=== PATIENT | female | born 1940 | race Caucasian/White ===

== ENCOUNTER 2020-10-12 15:46 | Outpatient (CLI) | payer MEDICARE, SELFPAY ==
--- NOTE | ~2020-10-12 | MM_ITS ---
EXAMINATION: MM screening [facility] BI w polo HISTORY: Screening mammogram TECHNIQUE: Craniocaudal and mediolateral oblique 3-D tomosynthesis images were obtained and synthetic 2-D images were generated. CAD analysis was submitted and interpreted. COMPARISON: 08/05/2019 bilateral digital screening mammogram 06/28/2018 left diagnostic digital mammogram and limited left breast ultrasound 06/04/2018 bilateral digital screening mammogram 10/28/2013 bilateral digital screening mammogram BREAST PARENCHYMAL COMPOSITION: There are scattered areas of fibroglandular density. FINDINGS: Scattered bilateral benign calcifications. There is an approximately 7 mm mass in the superolateral left subareolar area approximately 2 cm deep to the nipple. Otherwise there is no evidence of suspicious mass, calcification, or architectural distortion to sugg est malignancy in either breast. There has been no other suspicious interval change. IMPRESSION: 1. 7 mm superolateral subareolar circumscribed left breast mass 2. Diagnostic left mammogram and left breast ultrasound examination are recommended. BI-RADS Category 0: Incomplete: Needs additional imaging evaluation. Reviewed, dictated and finalized at location A. DEVELOPER IMPRESSION: 1. 7 mm superolateral subareolar circumscribed left breast mass 2. Diagnostic left mammogram and left breast ultrasound examination are recomme nded. BI-RADS Category 0: Incomplete: Needs additional imaging evaluation.
== END 2020-10-12 15:47 | disposition home or self-care (01) ==
LOC: ANHIMG 15:56
PROVIDERS: Family Provider Internal Medicine; PCP Internal Medicine; Visit Provider Obstetrics & Gynecology
DX: Z12.31 Encounter for screening mammogram for malignant neoplasm of breast (principal); R92.8 Other abnormal and inconclusive findings on diagnostic imaging of breast
CPT/HCPCS: 77063; 77067

== ENCOUNTER 2021-01-11 11:36 | Outpatient (CLI) | payer MEDICARE, SELFPAY ==
--- NOTE | ~2021-01-11 | MM_ITS ---
EXAMINATION: MM diagnostic caesar LT w polo HISTORY: Left breast mass on screening mammogram TECHNIQUE: Additional 3-D tomosynthesis images of left were performed and synthetic 2-D images were g enerated. CAD analysis was submitted and interpreted. COMPARISON: 10/12/2020, 08/05/2019, 06/28/2018, 06/04/2018 FINDINGS: There is a 7 mm oval, circumscribed, equal density mass in the anterior/middle third of the slightly upper, slightly outer breast at the 2:00 location 3 cm from the nipple. IMPRESSION: 1. Left breast mass. 2. Targeted left breast ultrasound is recommended. BI-RADS Category 0: Incomplete: Needs additional imaging evaluation. Reviewed, dictated and finalized at location A.
== END 2021-01-11 11:37 | disposition home or self-care (01) ==
LOC: ANHIMG 11:41
PROVIDERS: PCP Internal Medicine; Visit Provider Obstetrics & Gynecology
DX: R92.8 Other abnormal and inconclusive findings on diagnostic imaging of breast (principal)
CPT/HCPCS: 77061; 77065; G0279

== ENCOUNTER 2021-01-21 12:57 | Outpatient (CLI) | payer MEDICARE, SELFPAY ==
--- NOTE | ~2021-01-21 | US_ITS ---
US breast LT limited 01/21/2021 13:22 Indication: Follow-up left breast mass Procedure: High-resolution Limited ultrasound of the left breast Comparison: Mammogram dated 01/11/2021 and ultrasound dated 06/28/2018 Findings: At 2:00, 3 cm from the nipple, there is a 7 mm cyst corresponding to the mass identified on mammography. No suspicious masses to suggest malignancy. Impression: 1: Benign 7 mm left breast cysts at 3:00, 2 cm from the nipple which corresponds to the mammographic finding. No sonographic evidence for malignancy. Routine yearly screening mammogram and regular clinical breast examination are recommended. BI-RADS CATEGORY 2 - BENIGN FINDINGS Reviewed, dictated and finalized at location A. Impression: 1: Benign 7 mm left breast cysts at 3:00, 2 cm from the nipple which correspond s to the mammographic finding. No sonographic evidence for malignancy. Routine yearly screening mammogram and regular clinical breast examination are recommended. BI-RADS CATEGORY 2 - BENIGN FINDINGS
== END 2021-01-21 12:58 | disposition home or self-care (01) ==
PROVIDERS: PCP Internal Medicine; Visit Provider Obstetrics & Gynecology
DX: R92.8 Other abnormal and inconclusive findings on diagnostic imaging of breast (principal)
CPT/HCPCS: 76642

== ENCOUNTER → 2021-01-25 10:37 | Outpatient (REF) | payer MEDICARE, SELFPAY | LOC: ANHLAB 10:37 | PROVIDERS: PCP Internal Medicine; Visit Provider Nurse Practitioner | DX: C44.722 Squamous cell carcinoma of skin of right lower limb, including hip (principal) | CPT/HCPCS: 88305; 88331 ==

== ENCOUNTER → 2021-03-29 14:53 | Outpatient (REF) | payer MEDICARE, SELFPAY | LOC: ANHLAB 14:53 | PROVIDERS: PCP Internal Medicine; Visit Provider Nurse Practitioner | DX: D49.2 Neoplasm of unspecified behavior of bone, soft tissue, and skin (principal) | CPT/HCPCS: 88305 ==

== ENCOUNTER 2022-10-24 07:24 | Outpatient (RCR) | payer MEDICARE, SELFPAY ==
[2022-09-29 12:35] VITALS: BMI 30.2
== END 2022-12-19 13:52 | disposition home or self-care (01) ==
LOC: ANHWOC 07:24
PROVIDERS: PCP Family Medicine; Visit Provider Family Medicine
DX: L97.929 Non-pressure chronic ulcer of unspecified part of left lower leg with unspecified severity (principal)
CPT/HCPCS: 99213; A9270; G0463

== ENCOUNTER → 2022-11-08 11:56 | Outpatient (CLI) | payer MEDICARE, SELFPAY ==
--- NOTE | ~2022-11-08 | XR_ITS ---
XR chest 2V DATE: 11/08/2022 12:18 INDICATION: Cutaneous blastomycosis TECHNIQUE: PA and lateral views COMPARISON: None FINDINGS: Normal heart size. Aortic arch calcification and mild aortic tortuosity. No hilar or medias tinal enlargement. Mild elevation of right leaf of diaphragm. Mild discoid atelectasis or scarring at the lung bases. No pulmonary infiltrate or consolidation. No pleural effusion or pulmonary vascular congestion or pneum othorax. Prominent levoscoliosis and degenerative change of the lumbar spine. Osteopenia. IMPRESSION: Mild elevation of right diaphragm Mild discoid atelectasis or scarring at the lung bases Aortic atherosclerosis Osteopenia Reviewed, dictated and finalized at location L. AR STAY FUSER TENDER
== END ==
PROVIDERS: PCP Family Medicine
DX: B40.3 Cutaneous blastomycosis (principal); M85.88 Other specified disorders of bone density and structure, other site; I25.10 Atherosclerotic heart disease of native coronary artery without angina pectoris; R91.8 Other nonspecific abnormal finding of lung field
CPT/HCPCS: 71046

== ENCOUNTER 2023-07-04 15:21 | Outpatient (CLI) | payer MEDICARE, SELFPAY ==
--- NOTE | ~2023-07-04 | MM_ITS ---
EXAMINATION: MM screening [facility] BI w polo HISTORY: Screening mammogram TECHNIQUE: Craniocaudal and mediolateral oblique 3-D tomosynthesis images were obtained and synthetic 2-D images were generated. CAD analysis was submitted and interpreted. COMPARISON: 01/11/2021, 10/12/2020, 08/05/2019 BREAST PARENCHYMAL COMPOSITION: There are scattered areas of fibroglandular density. FINDINGS: A cyst is again noted in the subareolar aspect of the slightly outer left breast. No suspic ious mass, calcification, or architectural distortion are identified in either breast to suggest rosemarie gnancy. There has been no suspicious interval change. IMPRESSION: 1. No mammographic evidence of malignancy. 2. Recommend routine screening mammography while the patient remains in good health. BI-RADS Category 2: Benign finding(s). Reviewed, dictated and finalized at location A. IMPRESSION: 1. No mammographic evidence of malignancy. 2. Recommend routine screening mammography while the patient remains in good he alth. BI-RADS Category 2: Benign finding(s).
== END 2023-07-04 15:22 | disposition home or self-care (01) ==
LOC: ANHIMG 15:24
PROVIDERS: PCP Family Medicine; Visit Provider Obstetrics & Gynecology
DX: Z12.31 Encounter for screening mammogram for malignant neoplasm of breast (principal)
CPT/HCPCS: 77063; 77067

== ENCOUNTER 2024-07-19 14:19 | Outpatient (CLI) | payer MEDICARE, SELFPAY ==
[2024-07-19 18:05] LABS: Add Urine Microscopic? NO; Appearance Urine Clear (Clear); Bilirubin Urine Negative (Negative); Blood Urine Negative (Negative); Color Urine Yellow (Yellow); Glucose Urine UA Negative (Negative); Ketones Urine Negative (Negative); Leukocyte Esterase Ur Negative LEU/UL (Negative); Nitrate Urine Negative (Negative); Protein Urine Negative (Negative); Urobilinogen Urine 0.2 mg/dL (<2.0); pH Urine 5.5 (5.0-9.0)
== END 2024-07-19 14:20 | disposition home or self-care (01) ==
PROVIDERS: PCP Family Medicine; Visit Provider Family Medicine
DX: R39.9 Unspecified symptoms and signs involving the genitourinary system (principal); Z13.228 Encounter for screening for other metabolic disorders; Z13.220 Encounter for screening for lipoid disorders
CPT/HCPCS: 81003

== ENCOUNTER 2024-11-15 15:00 | Outpatient (CLI) | payer MEDICARE, SELFPAY ==
--- NOTE | ~2024-11-15 | MM_ITS ---
EXAMINATION: MM screening caesar BI w polo HISTORY: Screening TECHNIQUE: Craniocaudal and mediolateral oblique 3-D tomosynthesis images were obtained and synthetic 2-D images were generated. CAD analysis was submitted and interpreted. COMPARISON: Comparison to multiple prior studies sequentially, with oldest reviewed study dated 10/2018. BREAST PARENCHYMAL COMPOSITION: Not dense: There are scattered areas of fibroglandular density. FINDINGS: There is no evidence of suspicious mass, calcification, or architectural distortion to sugg est malignancy in either breast. There has been no suspicious interval change. IMPRESSION: 1. No mammographic evidence of malignancy. 2. Recommend routine screening mammography in one year. BI-RADS Category 1: Negative Reviewed, dictated and finalized at location []
--- OUTSIDE RECORDS SUMMARY | 2024-11-15 15:05 | XMS_ITS | Continuity of Care Document ---
Author Name Auto Generated, Auto Generated Organization [employer] Support Name Relationship Address Phone Arnaldo Arauz Emergency Contact [address] [place] [address] Melissa Arauz Emergency Contact [address] [place] [address] Melissa Arauz Financial Responsible Democrat [address] [place] [address] Melissa Arauz Self [address] [place] [address] Summary Purpose Consult/Referral Allergies, Adverse Reactions, Alerts No Known Allergies Medications No Known Medications Conditions/Problems No Known Problems Procedures No Known Procedures
--- OUTSIDE RECORDS SUMMARY | 2024-11-15 15:06 | XMS_ITS | Clinical Summary ---
Author Organization [facility] Address [address] [place] [address] Care Team Providers Care Typing Section Chief Name Role Phone Gokul Albarran MD Primary Care Provider Source Comments [facility],non-university hospital Affiliates and Associated Physician Practices is amultiple site organization consisting of ambulatory clinics and hospital sitesin [place], [place], [place] and [place]. This disclosure is being madepursuant to the Care Everywhere program and may not contain all information available regarding this patient. Last updated 18.[facility] Allergies Active Allergy Reactions Criticality Noted Date Comments Codeine Dizziness 05/07/2021 Reaction: Dizziness, Medications * Be aware that medications may not be up to date on this document. Alwaysverify current medications with the patient. Medication Sig Dispensed Refills Start Date End Date Status amLODIPine (NORVASC) 5 MG tablet 05/03/2021 Active atorvastatin (LIPITOR) 20 MG tablet 02/10/2021 Active celecoxib (CELEBREX) 100 MG capsule 02/10/2021 Active clonazePAM (KLONOPIN) 0.5 MG tablet 11/15/2020 Active fluticasone propionate (FLONASE) 50 MCG/ACT nasal spray 05/03/2021 Active hydroCHLOROthiazide (HYDRODIURIL) 25 MG tablet 05/03/2021 Active levothyroxine (SYNTHROID) 100 MCG tablet 05/03/2021 Active montelukast (SINGULAIR) 10 MG tablet 05/03/2021 Active nitrofurantoin monohyd macro crystals (MACROBID) 100 MG capsule 03/04/2021 Active olopatadine (PATADAY) 0.2 % ophthalmic solution 06/09/2020 Active predniSONE (DELTASONE) 20 MG tablet 04/22/2021 Active triamcinolone acetonide (KENALOG) 0.1 % cream 04/26/2021 Act boogie vitamin D3 (D--NI) 10 MCG (400 UNITS)/ML solution Take 1,000 Units by mouth Active Active Problems No known active problems Social History Tobacco Use Types Packs/Day Years Used Date Smoking Tobacco: Never Smokeless Tobacco: Never Sex and Gender Information Value Date Recorded Sex Assigned at Female 05/28/2021 5:56 PM CDT Gender Identity Female 05/28/2021 5:56 PM CDT Sexual Orientation Straight 05/28/2021 5: 56 PM CDT Plan of Treatment Health Maintenance Due Date Last Done Comments BONE DENSITY TESTING 1940 DTAP/TDAP/TD VACCINES (1 - Tdap) 1959 PNEUMOCOCCAL VACCINE 50+ (1 of 1 - PCV) 1990 ZOSTER VACCINE (1 of 2) 1990 Respiratory Syncytial Virus (RSV) Vaccine Pt: or over 60 yrs (1 - 1-dose 75+ series) 2015 COVID-19 VACCINE (2023-2 5 season) 2024 INFLUENZA VACCINE (#1) 2024 DEPRESSION SCREENING 09/04/2024 MEDICARE AWV CALENDAR YEAR 2024 HEPATITIS B VACCINE Aged Out No longe r eligible based on patient's age to complete this topic HIB VACCINE Aged Out No longer eligi ble based on patient's age to complete this topic HPV VACCINE Aged Out No longer eligi ble based on patient's age to complete this topic MENINGOCOCCAL (Group B) VACC INE SHARED DECISION-MAKING Aged Out No longer eligibl e based on patient's age to complete this topic MENINGOCOCCAL GROUPS A/C/Y/W VACCINE Aged Out No longer eligible b ased on patient's age to complete this topic Care Teams Typing Section Chief Relationship Specialty Start Date End Date Gokul Albarran MD [address] [place] [address] PCP - General 12/15/20
--- OUTSIDE RECORDS SUMMARY | 2024-11-15 15:06 | XMS_ITS | Encounter Summary ---
Author Organization [facility] Address [facility] [place] [address] Care Team Providers Care Supply Cataloguer Name Role Phone Gokul Albarran MD Primary Care Provider [phone] Encounter Details Date Type Department Care Team (Late st Contact Info) Description 03/21/2024 Lab Requisition [facility] - DermPath Lab [address] [place] [id number] Landy Najera DO [address] [facility] [facility] [place] [address] Social History Tobacco Use Types Packs/Day Years Used Date Smoking Tobacco: Never Smokeless Tobacco: Never Sex and Gender Information Value Date Recorded Sex Assigned at Female 05/28/2021 5:56 PM CDT Gender Identity Female 05/28/2021 5:56 PM CDT Sexual Orientation Straight 05/28/2021 5: 56 PM CDT documented as of this encounter Plan of Treatment Not on file documented as of this encounter Procedures Procedure Name Priority Date/Time Associated Diagnosis Comments DERMATOPATHOLOGY Routine 03/21/2024 2:52 PM CDT documented in this encounter Results * DERMATOPATHOLOGY (03/21/2024 2:52 PM CDT) Case Report Dermatopathology Report Case: [id number] Authorizing Provider: Landy Najera DO Collected: 03/21/2024 02:52 PM Ordering Location: [facility] - Received: 03/25/2024 07:38 AM DermPath Lab Pathologist: Hawa Ayala MD Specimens: A) - Skin, left helix B) - Skin, right elbow 3:12 PM T DERMATOPATHOLOGY LABORATORY Final Diagnosis Specimen A. SKIN, left helix: BASAL CELL CARCINOMA, NODULAR TYPE (C44.219) Specimen B. 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 The specimen consists of a shave biopsy measuring 6x4x1 mm. Jar 0. Specimen B: Received is one formalin filled container labeled with the patient's name and designated right elbow. The specimen consists of a shave biopsy measuring 9x8x2 mm. Jar 0. 3:12 PM T DERMATOPATHOLOGY LABORATORY Microscopic Description Specimen A. SKIN, left helix: Within the dermis there are aggregates of basaloid cells with a high nuclear to cytoplasmic ratio and peripheral palisading. Specimen B. SKIN, right elbow: There is psoriasiform hyperplasia of the epidermis with focal parakeratosis and spongiosis. There are also scattered dyskeratotic keratinocytes and vacuolar alteration along the basal cell layer. In addition, an underlying band-like infiltrate composed mostly of lymphocytes focally obscures the dermal-epidermal junction. Scattered eosinophils are seen in the dermis as well as within the epidermis. Intraepidermal Langerhans cell microabscesses are noted. The epidermis is focally necrotic and covered with a scale-crust. There is fibrin at the base. Grocott's methenamine silver (GMS) stain is negative for fungal elements in the sections examined. Additional deeper sections were obtained and reviewed. COMMENT: If these histologic features represent a more localized process, the findings are consistent with an inflamed benign verrucous keratosis. If these histologic features represent a more diffuse process, the histologic differential diagnosis includes hypertrophic lichen planus, a lichenoid hypersensitivity reaction, such as to contact or drug, or an immunobullous disease, such as bullous pemphigoid. If there is clinical concern for a diagnosis of an immunobullous disease, consideration should be given to submitting tissue for direct immunofluorescence. 4 3:12 PM CDT DERMATOPATHOLOGY LABORATORY Disclaimer An external and internal positive and negative controls are appropriate for the histochemical, immunohistochemical and immunofluorescence stain(s) in this case (if any), except where stated explicitly. The performance characteristics of the stain(s) cited in this report were developed and its performance characteristic determined by the Dermatopathology Laboratory at [facility], directed by Dr. Dylan Castle. These tests need not be, and therefore are not, approved by the [place] Food and Drug Administration. The tests are used for clinical purposes. Billing Codes Specimen Charges Stain Charges 09151 85196 1 1 41622 1 4 3:12 PM CDT DERMATOPATHOLOGY LABORATORY Embedded Images 4 3:12 PM CDT DERMATOPATHOLOGY LABORATORY Pathology/Cytology TISSUE SPECIMEN FROM SKIN / Unknown 03/21/2024 2:52 PM CDT 03/25/2024 7:38 AM CDT Miscellaneous samples (specimen) TISSUE SPECIMEN FROM SKIN / Unknown 03/21/2024 2:52 PM CDT 03/25/2024 7:38 AM CDT Landy Najera DO LAB - PATHOLOGY/C YTOLOGY ORDERABLES DERMATOPATHOLOGY LABORATORY [facility] - Department of Dermatology [facility] [address] [place] [address], [address] [phone] documented in this encounter Visit Diagnoses Not on filedocumented in this encounter Care Teams Supply Cataloguer Relationship Specialty Start Date End Date Gokul Albarran MD [address] [place] [address] PCP - General 12/15/20 documented as of this encounter
--- OUTSIDE RECORDS SUMMARY | 2024-11-15 15:06 | XMS_ITS | Referral Summary ---
Author Organization [facility] Address [address] [place] [address] Care Team Providers Care Cupola Melter Name Role Phone Gokul Albarran MD Primary Care Provider Source Comments [facility],non-[facility] Affiliates and Associated Physician Practices is amultiple site organization consisting of ambulatory clinics and hospital sitesin [place], [place], [place] and [place]. This disclosure is being madepursuant to the [...] 5: 56 PM CDT Plan of Treatment Not on file Care Teams Cupola Melter Relationship Specialty Start Date End Date Gokul Albarran MD [address] [place] [address] PCP - General 12/15/20
--- OUTSIDE RECORDS SUMMARY | 2024-11-15 15:07 | XMS_ITS | Encounter Summary ---
Author Organization [facility] Address [address] [place] [address] Care Team Providers Care Vamp Stitcher Name Role Phone Gokul Albarran MD Primary Care Provider [phone] Encounter Details Date Type Department Care Team (Late st Contact Info) Description 12/16/2020 Lab Requisition [facility] [address] [place] [address] Jose William MD [address] [address] Social History Tobacco Use Types Packs/Day Years Used Date Smoking Tobacco: Never Assessed Sex and Gender Information Value Date Recorded Sex Assigned at Female 05/28/2021 5:56 PM CDT Gender Identity Female 05/28/2021 5:56 PM CDT Sexual Orientation Straight 05/28/2021 5: 56 PM CDT documented as of this encounter Plan of Treatment Not on file documented as of this encounter Procedures Procedure Name Priority Date/Time Associated Diagnosis Comments DERMATOPATHOLOGY Routine 12/14/2020 3:33 AM CDT documented in this encounter Results * DERMATOPATHOLOGY (12/14/2020 3:33 AM CDT) Case Report Dermatopathology Report Case: [id number] Authorizing Provider: Jose William MD Collected: 12/14/2020 03:33 AM Ordering Location: [facility] Received: 12/16/2020 06:43 AM Pathologist: Koby Castle MD Specimen: Skin, right lower leg 2:17 PM CDT DERMATOPATHOLOGY LABORATORY Final Diagnosis Specimen A. 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 Path # [id number]. 2:17 PM CDT DERMATOPATHOLOGY LABORATORY Gross Description Specimen A: Received is one formalin filled container labeled with the patient's name and designated right lower leg. The specimen consists of a shave biopsy measuring [id number]. Jar 0. 2:17 PM CDT DERMATOPATHOLOGY LABORATORY Microscopic Description Specimen A. SKIN, right lower leg: Arising in the epidermis and extending into the dermis there are irregularly shaped aggregates of keratinocytes showing evidence of premature cornification. 2:17 PM CDT DERMATOPATHOLOGY LABORATORY Disclaimer An external and internal positive and negative controls are appropriate for the histochemical, immunohistochemical and immunofluorescence stain(s) in this case (if any), except where stated explicitly. The performance characteristics of the stain(s) cited in this report were developed and its performance characteristic determined by the Dermatopathology Laboratory at [facility], directed by Dr. Dylan Castle. These tests need not be, and therefore are not, approved by the [place] Food and Drug Administration. The tests are used for clinical purposes. Billing Codes Specimen Charges Stain Charges 66899 1 1 2:17 PM CDT DERMATOPATHOLOGY LABORATORY Embedded Images 2:17 PM CDT DERMATOPATHOLOGY LABORATORY Pathology/Cytolo gy TISSUE SPECIMEN FROM SKIN / Unknown 12/14/2020 3:33 AM CDT 12/16/2020 6:43 AM CDT Jose William MD LAB - PATHOLOGY/CYTO LOGY ORDERABLES DERMATOPATHOLOGY LABORATORY [facility] - Department of Dermatology [address], [address] [phone] documented in this encounter Visit Diagnoses Not on filedocumented in this encounter Care Teams Vamp Stitcher Relationship Specialty Start Date End Date Gokul Albarran MD [address] [place] [address] PCP - General 12/15/20 documented as of this encounter
--- OUTSIDE RECORDS SUMMARY | 2024-11-15 15:07 | XMS_ITS | Encounter Summary ---
Author Organization [facility] Address [address] [place] [address] Care Team Providers Care Color Developer Name Role Phone Gokul Albarran MD Primary Care Provider [phone] Encounter Details Date Type Department Care Team (Late st Contact Info) Description 03/19/2021 Lab Requisition [facility] DermPath Lab [address] [place] [address] Jose William MD [address] [place] [address] Social History Tobacco Use Types Packs/Day [...] Priority Date/Time Associated Diagnosis Comments DERMATOPATHOLOGY Routine 03/17/2021 3:33 AM CDT documented in this encounter Results * DERMATOPATHOLOGY (03/17/2021 3:33 AM CDT) Case Report Dermatopathology Report Case: [id number] Authorizing Provider: Jose William MD Collected: 03/17/2021 03:33 AM Ordering Location: [facility] DermPath Lab Received: 03/19/2021 05:39 AM Pathologist: Stacey Padilla MD Specimens: A) - Skin, right ant lower leg B) - Skin, left post lower leg 4:32 PM [facility] DERMATOPATHOLOGY LABORATORY Final Diagnosis Specimen A. SKIN, right ant lower leg: SQUAMOUS CELL CARCINOMA, WELL DIFFERENTIATED (C44.722) Specimen B. SKIN, left post lower leg: SQUAMOUS CELL CARCINOMA, WELL DIFFERENTIATED (C44.729) 4:32 PM [facility] DERMATOPATHOLOGY LABORATORY Clinical History A: SCCA vs other. Path # [id number]. B: SCCA vs other. Path # [id number]. 4:32 PM [facility] DERMATOPATHOLOGY LABORATORY Gross Description Specimen A: Received is one formalin filled container labeled with the patient's name and designated right ant lower leg. The specimen consists of a shave biopsy measuring 6t1x2zm. Jar 0. Specimen B: Received is one formalin filled container labeled with the patient's name and designated left post lower leg. The specimen consists of a shave biopsy measuring [id number]. Jar 0. 4:32 PM [facility] DERMATOPATHOLOGY LABORATORY Microscopic Description Specimen A. SKIN, right ant lower leg: Arising in the epidermis and extending into the dermis there are irregularly shaped aggregates of keratinocytes showing evidence of premature cornification. Specimen B. SKIN, left post lower leg: Arising in the epidermis and extending into the dermis there are irregularly shaped aggregates of keratinocytes showing evidence of premature cornification. 4:32 PM T DERMATOPATHOLOGY LABORATORY Disclaimer An external and internal positive and negative controls are appropriate for the histochemical, immunohistochemical and immunofluorescence stain(s) in this case (if any), except where stated explicitly. The performance characteristics of the stain(s) cited in this report were developed and its performance characteristic determined by the Dermatopathology Laboratory at [facility], directed by Dr. Dylan Castle. These tests need not be, and therefore are not, approved by the [place] Food and Drug Administration. The tests are used for clinical purposes. Billing Codes Specimen Charges Stain Charges 37582 02181 1 1 1 4:32 PM T DERMATOPATHOLOGY LABORATORY Embedded Images 4:32 PM CDT DERMATOPATHOLOGY LABORATORY Pathology/Cytology TISSUE SPECIMEN FROM SKIN / Unknown 03/17/2021 3:33 AM CDT 03/19/2021 5:39 AM CDT Miscellaneous samples (specimen) TISSUE SPECIMEN FROM SKIN / Unknown 03/17/2021 3:33 AM CDT 03/19/2021 5:39 AM CDT Jose William MD LAB - PATHOLOGY/CYTO LOGY ORDERABLES DERMATOPATHOLOGY LABORATORY [facility] - Department of Dermatology [facility] Medicine [address] [place] [address], [address] [phone] documented in this encounter Visit Diagnoses Not on filedocumented in this encounter Care Teams Color Developer Relationship Specialty Start Date End Date Gokul Albarran MD [address] [place] [address] PCP - General 12/15/20 documented as of this encounter
--- OUTSIDE RECORDS SUMMARY | 2024-11-15 15:07 | XMS_ITS | Patient Health Summary ---
Author Organization [facility] Address [address] [place] [address] Care Team Providers Care Feed Crusher Name Role Phone Gokul Albarran MD Primary Care Provider [phone] Note from [facility],non-owned Affiliates and Associated Physician Practices is amultiple site organization consisting of ambulatory clinics and hospital sitesin [place], [place], [place] and [place]. This disclosure is being madepursuant to the Care Everywhere program and may not contain all information available regarding this patient. Last updated 18.[facility] Allergies * Codeine(Dizziness) Medications * Be aware that medications may not be up to date on this document. Alwaysverify current medications with the patient. * amLODIPine (NORVASC) 5 MG tablet(Started 05/03/2021) * atorvastatin (LIPITOR) 20 MG tablet(Started 02/10/2021) * celecoxib (CELEBREX) 100 MG capsule(Started 02/10/2021) * clonazePAM (KLONOPIN) 0.5 MG tablet(Started 11/15/2020) * fluticasone propionate (FLONASE) 50 MCG/ACT nasal spray(Started 05/03/2021) * hydroCHLOROthiazide (HYDRODIURIL) 25 MG tablet(Started 05/03/2021) * levothyroxine (SYNTHROID) 100 MCG tablet(Started 05/03/2021) * montelukast (SINGULAIR) 10 MG tablet(Started 05/03/2021) * nitrofurantoin monohyd macro crystals (MACROBID) 100 MG capsule(Started 03/04/2021) * olopatadine (PATADAY) 0.2 % ophthalmic solution(Started 06/09/2020) * predniSONE (DELTASONE) 20 MG tablet(Started 04/22/2021) * triamcinolone acetonide (KENALOG) 0.1 % cream(Started 04/26/2021) * vitamin D3 (D--NI) 10 MCG (400 UNITS)/ML solution Take 1,000 Units by mouth Active Problems No known active problems Social History Tobacco Use Types Packs/Day Years Used Date Smoking Tobacco: Never Smokeless Tobacco: Never Sex and Gender Information Value Date Recorded Sex Assigned at Female 05/28/2021 5:56 PM CDT Gender Identity Female 05/28/2021 5:56 PM CDT Sexual Orientation Straight 05/28/2021 5: 56 PM CDT Procedures * DERMATOPATHOLOGY(Performed 03/21/2024) * DERMATOPATHOLOGY(Performed 04/22/2021) * DERMATOPATHOLOGY(Performed 03/17/2021) * DERMATOPATHOLOGY(Performed 12/14/2020) * CYTOLOGY SMEAR PAP THIN PREP(Performed 01/18/1999) * CYTOLOGY SMEAR PAP THIN PREP(Performed 10/03/1997) Results * DERMATOPATHOLOGY (03/21/2024 2:52 PM CDT) Only the most recent of4 resultswithin the time period is included. Case Report Dermatopathology Report Case: [id number] Authorizing Provider: Landy Najera DO Collected: 03/21/2024 02:52 PM Ordering Location: [facility] - Received: 03/25/2024 07:38 AM DermPath Lab Pathologist: Hawa Ayala MD Specimens: A) - Skin, left helix B) - Skin, right elbow 4 3:12 PM CDT DERMATOPATHOLOGY LABORATORY Final Diagnosis Specimen A. SKIN, left helix: BASAL CELL CARCINOMA, NODULAR TYPE (C44.219) Specimen B. 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 Jar 0. 3:12 PM [facility] DERMATOPATHOLOGY LABORATORY Microscopic Description Specimen A. SKIN, [...] given to submitting tissue for direct immunofluorescence. 3:12 PM [facility] DERMATOPATHOLOGY LABORATORY Disclaimer An external and internal positive and negative controls are appropriate for the histochemical, immunohistochemical and immunofluorescence stain(s) in this case (if any), except where stated explicitly. The performance characteristics of the stain(s) cited in this report were developed and its performance characteristic determined by the Dermatopathology Laboratory at [facility], directed by Dr. Dylan Castle. These tests need not be, and therefore are not, approved by the [place] Food and Drug Administration. The tests are used for clinical purposes. Billing Codes Specimen Charges Stain Charges 80876 61137 1 1 48402 1 4 3:12 PM CDT DERMATOPATHOLOGY LABORATORY Embedded Images 4 3:12 PM CDT DERMATOPATHOLOGY LABORATORY Pathology/Cytology TISSUE SPECIMEN FROM SKIN / Unknown 03/21/2024 2:52 PM CDT 03/25/2024 7:38 AM CDT Miscellaneous samples (specimen) TISSUE SPECIMEN FROM SKIN / Unknown 03/21/2024 2:52 PM CDT 03/25/2024 7:38 AM CDT Landy Najera DO LAB - PATHOLOGY/C YTOLOGY ORDERABLES DERMATOPATHOLOGY LABORATORY [facility] - Department of Dermatology [address], [address] [phone] * CYTOLOGY SMEAR PAP THIN PREP (01/18/1999 11:15 AM CDT) Only the most recent of2 resultswithin the time period is included. Result CASE NUMBER [id number] Comment: ORDERING PHYSICIAN FRANCINE NAVA SPECIMEN TYPE PAP Smear Date 01/18/1999 Procedure Vaginal, 1 Vial for Thin Prep Received Specimen Adequacy Satisfactory for Evaluation Categorization Epithelial Cell Abnormality Atypical sq. cells of undetermined significance (ASCUS) Snomed. 02/02/1999 1538 <1> Knockout Machine Operator Alice Alejo (ASCP) Pathologist. Eleazar Pretty M.D. PAP Footnote The PAP smear is only a screening procedure to aid in the detection of cervical cancer and its precursors. It is not a diagnostic procedure and should not be used as the sole means to detect cervical cancer. Both false negative and false positive results have been experienced. MISCELLANEOUS SAMPLES / Unknown 01/18/1999 11:15 AM CDT 01/20/1999 11:15 AM CDT Historical Provider LAB - PATHOLOGY/C YTOLOGY ORDERABLES Care Teams Feed Crusher Relationship Specialty Start Date End Date Gokul Albarran MD [address] [place] [address] PCP - General 12/15/20
--- OUTSIDE RECORDS SUMMARY | 2024-11-15 15:07 | XMS_ITS | Encounter Summary ---
Author Organization [facility] Address [address] [place] [address] Care Team Providers Care Floor Renovator Name Role Phone Gokul Albarran MD Primary Care Provider Encounter Details Date Type Department Care Team (Late st Contact Info) Description 04/24/2021 Lab Requisition [facility] DermPath Lab [address] [place] [address] Jose William MD [address] [place] [address] Social History Tobacco Use Types Packs/Day [...] Priority Date/Time Associated Diagnosis Comments DERMATOPATHOLOGY Routine 04/22/2021 3:33 AM CDT documented in this encounter Results * DERMATOPATHOLOGY (04/22/2021 3:33 AM CDT) Case Report Dermatopathology Report Case: [id number] Authorizing Provider: Jose William MD Collected: 04/22/2021 03:33 AM Ordering Location: [facility] DermPath Lab Received: 04/24/2021 02:45 PM Pathologist: Hawa Ayala MD Specimen: Skin, right back 2:46 PM T DERMATOPATHOLOGY LABORATORY Final Diagnosis Specimen A. SKIN, right back: SPONGIOTIC DERMATITIS WITH EOSINOPHILS (L30.8) (see microscopic description and comment) 2:46 PM T DERMATOPATHOLOGY LABORATORY Clinical History ACD vs drug eruption vs BP. Path # [id number]. 2:46 PM CDT DERMATOPATHOLOGY LABORATORY Gross Description Specimen A: Received is one formalin filled container labeled with the patient's name and designated right back. The specimen consists of a shave biopsy measuring [id number]. Jar 0. 2:46 PM T DERMATOPATHOLOGY LABORATORY Microscopic Description Specimen A. SKIN, right back: There is focal parakeratosis and spongiosis. Intraepidermal spongiotic microvesicles are present. In the dermis there is a mainly superficial perivascular lymphohistiocytic inflammatory infiltrate with eosinophils. Grocott's methenamine silver (GMS) stain fails to highlight fungal elements in the available sections. COMMENT: The histological differential diagnosis includes a contact dermatitis, an eczematous drug eruption, and less likely the urticarial phase of bullous pemphigoid. 2:46 PM CDT DERMATOPATHOLOGY LABORATORY Disclaimer An external and internal positive and negative controls are appropriate for the histochemical, immunohistochemical and immunofluorescence stain(s) in this case (if any), except where stated explicitly. The performance characteristics of the stain(s) cited in this report were developed and its performance characteristic determined by the Dermatopathology Laboratory at [facility], directed by Dr. Dylan Castle. These tests need not be, and therefore are not, approved by the [place] Food and Drug Administration. The tests are used for clinical purposes. Billing Codes Specimen Charges Stain Charges 63146 1 91779 1 1 2:46 PM CDT DERMATOPATHOLOGY LABORATORY Embedded Images 2:46 PM CDT DERMATOPATHOLOGY LABORATORY Pathology/Cytolo gy TISSUE SPECIMEN FROM SKIN / Unknown 04/22/2021 3:33 AM CDT 04/24/2021 2:45 PM CDT Jose William MD LAB - PATHOLOGY/CYTO LOGY ORDERABLES DERMATOPATHOLOGY LABORATORY [facility] - Department of Dermatology [facility] Medicine [address] [place] [address], [address] [phone] documented in this encounter Visit Diagnoses Not on filedocumented in this encounter Care Teams Floor Renovator Relationship Specialty Start Date End Date Gokul Albarran MD [address] [place] [address] PCP - General 12/15/20 documented as of this encounter
--- OUTSIDE RECORDS SUMMARY | 2024-11-15 15:07 | XMS_ITS | Clinical Summary ---
Author Organization [facility] Address [address] Attn: Epic Prelude ADT [place] [address] Care Team Providers Care Design Consultant Name Role Phone Unavailable Primary Care Provider Unavailabl e Allergies Active Allergy Reactions Criticality Noted Date Comments Codeine Unknown 04/12/2023 Nitrofurantoin Monohyd/M-Cryst Unknown 04/12 Medications levothyroxine 100 mcg tablet Take 1 tablet by mouth daily. 90 Tablet 4 2 2:14 PM CDT 022 Active mupirocin (BACTROBAN) 2 % Ointment Apply topically 2-3 times a day until symptoms resolved as directed 22 Gram 2 5:31 PM CDT 022 Active amoxicillin (AMOXIL) 500 mg capsule Take 4 (four) capsules by mouth 1 (one) hour prior to each dental appointment. 12 Capsule 2 6:43 PM CDT 022 Active pravastatin (PRAVACHOL) 10 mg tablet Take 1 Tablet (10 mg) by mouth daily. 90 Tablet 4 3 5:43 PM CDT 022 Active nirmatrelvir-ri tonavir (Paxlovid, EUA,) 300(150mg x 2)-100 mg oral pack Take TWO 150 mg tablets of nirmatrelvir with ONE 100 mg tablet of ritonavir by mouth twice daily for 5 days. 30 Each 023 Active triamcinolone acetonide (KENALOG) 0.1 % Cream Apply twice daily over affected areas on the arms for no more than 3 weeks in a row. 80 Gram 3 6:35 PM SHINGLE SHEARING MACHINE OPERATOR 023 Active mupirocin (BACTROBAN) 2 % Ointment Apply 2-3 times a day until symptoms resolved 44 Gram 3 5:48 PM SHINGLE SHEARING MACHINE OPERATOR 023 Active amoxicillin (AMOXIL) 875 mg tablet Take one tablet by mouth twice daily until gone 14 Tablet 3 6:02 PM CDT 023 Active acitretin (SORIATANE) 25 mg Capsule Take 1 Capsule (25 mg) by mouth daily. 30 Capsule 3 6:40 PM CDT 023 Active clobetasoL (TEMOVATE) 0.05 % Ointment Apply to affected areas twice daily until follow up in 3 weeks 45 Gram 1 3 6:40 PM CDT 023 Active mupirocin (BACTROBAN) 2 % Ointment Apply twice daily to the affected areas on the legs until healed 22 Gram 1 3 3:56 PM SHINGLE SHEARING MACHINE OPERATOR 023 Active clobetasoL (TEMOVATE) 0.05 % Ointment Apply to affected areas twice daily until follow up in 3 weeks. 45 Gram 1 3 8:37 AM CDT 023 Active mupirocin (BACTROBAN) 2 % Ointment Apply twice daily to the affected areas on the legs until healed 22 Gram 1 4 12:03 PM SHINGLE SHEARING MACHINE OPERATOR 023 Active amoxicillin (AMOXIL) 500 mg capsule TAKE 4 CAPSULES BY MOUTH 1 HOUR PRIOR TO EACH DENTAL APPOINTMENT 12 Capsule 3 6:21 PM CDT 023 Active clonazePAM (KlonoPIN) 0.5 mg Tablet Take 1 Tablet (0.5 mg) by mouth daily. 90 Tablet 1 3 4:32 PM SHINGLE SHEARING MACHINE OPERATOR 023 Active acitretin (SORIATANE) 10 mg Capsule Take 1 Capsule (10 mg) by mouth daily. 30 Capsule 1 3 5:42 PM CDT 023 Active mupirocin (BACTROBAN) 2 % Ointment Apply to open sores on lower legs 2 times daily. 22 Gram 1 4 12:59 PM CDT 023 Active amLODIPine (NORVASC) 5 mg tablet Take 1 Tablet (5 mg) by mouth daily. 90 Tablet 1 4 6:47 PM CDT 024 Active hydroCHLOROthia zide 25 mg tablet TAKE ONE TABLET BY MOUTH ONCE DAILY 90 Tablet 1 4 6:47 PM CDT 024 Active levothyroxine 112 mcg tablet Take 1 Tablet (112 mcg) by mouth daily. 90 Tablet 1 4 6:47 PM CDT 024 Active montelukast (SINGULAIR) 10 mg tablet Take 1 Tablet (10 mg) by mouth daily. 90 Tablet 1 4 6:47 PM CDT 024 Active clobetasoL (TEMOVATE) 0.05 % Ointment Apply to leg(s) two times daily for 14 days, then use as needed. 60 Gram 2 4 5:48 PM CDT 024 Active silver sulfADIAZINE (Silvadene) 1 % Cream Apply to open wounds on legs two times daily. 85 Gram 1 4 12:59 PM CDT 024 Active ruxolitinib (Opzelura) 1.5 % Cream Apply to arms and legs two times daily as needed. 60 Gram 6 4 6:10 PM CDT 024 Active cephALEXin (KEFLEX) 500 mg capsule Take 1 capsule by mouth twice daily for 10 days 20 Capsule 4 4:56 PM CDT 024 Active gentamicin (GARAMYCIN) 0.1 % Ointment APPLY TO OPEN SORES TWICE DAILY. 15 Gram 4 12:27 PM CDT 024 Active methotrexate (RHEUMATREX) 2.5 mg Tablet Take 6 Tablets (15 mg) by mouth once weekly on Monday. 24 Tablet 3 4 12:59 PM CDT 024 Active folic acid (FOLVITE) 1 mg tablet Take 1 Tablet (1 mg) by mouth daily. 30 Tablet 3 4 12:59 PM CDT 024 Active famotidine (PEPCID) 20 mg tablet Take 1 Tablet (20 mg) by mouth daily. 90 Tablet 1 5 12:58 PM SHINGLE SHEARING MACHINE OPERATOR 024 Active celecoxib (CeleBREX) 100 mg capsule Take 1 Capsule (100 mg) by mouth 2 times daily. 180 Capsule 1 5 10:34 AM SHINGLE SHEARING MACHINE OPERATOR 024 Active nitrofurantoin (MACROBID) 100 mg capsule Take 1 Capsule (100 mg) by mouth every 12 hours for 5 days. Must administer with a meal/food. 10 Capsule 4 5:44 PM CDT 024 Active clobetasoL (TEMOVATE) 0.05 % Ointment Apply to legs twice daily 60 Gram 3 4 12:59 PM CDT 024 Active clonazePAM (KlonoPIN) 0.5 mg Tablet Take 1 Tablet (0.5 mg) by mouth daily. 90 Tablet 1 5 12:58 PM SHINGLE SHEARING MACHINE OPERATOR 024 Active pravastatin (PRAVACHOL) 10 mg tablet Take 1 Tablet (10 mg) by mouth daily. 90 Tablet 1 5 9:55 AM SHINGLE SHEARING MACHINE OPERATOR 024 Active fluticasone propionate (FLONASE) 50 mcg/spray [place], Suspension nasal inhaler SPRAY 2 SPRAYS IN EACH NOSTRIL ONCE DAILY 48 Gram 1 4 12:57 PM SHINGLE SHEARING MACHINE OPERATOR 024 Active amoxicillin (AMOXIL) 500 mg capsule Take 4 Capsules (2,000 mg) by mouth one time 1 hour prior to appointment. 12 Capsule 4 1:19 PM SHINGLE SHEARING MACHINE OPERATOR 024 Active hydroCHLOROthia zide 25 mg tablet TAKE ONE TABLET BY MOUTH ONCE DAILY 90 Tablet 1 5 7:56 PM CDT 024 Active mirabegron (MYRBETRIQ) 25 mg Extended Release 24 hour tablet Take 1 Tablet (25 mg) by mouth daily. 30 Tablet 5 4 3:53 PM SHINGLE SHEARING MACHINE OPERATOR 024 Active amLODIPine (NORVASC) 5 mg tablet Take 1 Tablet (5 mg) by mouth daily. 90 Tablet 1 5 10:03 AM SHINGLE SHEARING MACHINE OPERATOR 025 Active levothyroxine 112 mcg tablet Take 1 Tablet (112 mcg) by mouth daily. 90 Tablet 1 5 10:03 AM SHINGLE SHEARING MACHINE OPERATOR 025 Active montelukast (SINGULAIR) 10 mg tablet Take 1 Tablet (10 mg) by mouth daily. 90 Tablet 1 5 10:03 AM SHINGLE SHEARING MACHINE OPERATOR 025 Active silver sulfADIAZINE (Silvadene) 1 % Cream Apply a small amount to affected area twice a day. Apply to legs. 50 Gram 1 5 7:36 PM SHINGLE SHEARING MACHINE OPERATOR 025 Active triamcinolone acetonide (KENALOG) 0.1 % Cream Apply twice daily to affected areas on arms for no more than 3 weeks in a row. 80 Gram 2 5 7:56 PM CDT 025 Active triamcinolone acetonide (KENALOG) 0.1 % Cream Apply twice daily to affected areas on arms for no more than 3 weeks in a row. 80 Gram 2 025 Active predniSONE (DELTASONE) 10 mg tablet TAKE 6 TABLETS BY MOUTH DAILY FOR 3 DAYS, THEN 5 TABS FOR 3 DAYS, THEN 4 TABS FOR 3 DAYS, THEN 3 TABS FOR 3 DAYS, THEN 2 TABS FOR 3 DAYS, THEN 2 TABS FOR 3 DAYS, AND THEN 1 TAB FOR 3 DAYS 63 Tablet 025 Active amLODIPine (NORVASC) 5 mg tablet Take 1 Tablet (5 mg) by mouth daily. 90 Tablet 1 4 12:57 PM SHINGLE SHEARING MACHINE OPERATOR 024 2024 Discontinued(R eorder) levothyroxine 112 mcg tablet Take 1 Tablet (112 mcg) by mouth daily. 90 Tablet 1 4 12:57 PM SHINGLE SHEARING MACHINE OPERATOR 024 2024 Discontinued(R eorder) montelukast (SINGULAIR) 10 mg tablet Take 1 Tablet (10 mg) by mouth daily. 90 Tablet 1 4 12:57 PM SHINGLE SHEARING MACHINE OPERATOR 024 2024 Discontinued(R eorder) triamcinolone acetonide (KENALOG) 0.1 % Cream Apply twice daily to affected areas on arms for no more than 3 weeks in a row. 80 Gram 4 5:44 PM CDT 024 2024 Discontinued cephALEXin (KEFLEX) 500 mg capsule Take 1 Capsule (500 mg) by mouth 2 times daily for 10 days. 20 Capsule 7:36 PM SHINGLE SHEARING MACHINE OPERATOR 025 2024 Immunizations Immunization Administration Dates Next Due (COMIRNATY)(12 YR UP) COVID- 19 VACCINE, MRNA, SPIKE PROTEIN, LNP, KAVON(PF) 30 MCG/0.3 ML IM SUSP 07/16/2024,08/01/2023 (PREVNAR 20)(6 WKS UP) PNEUM OCOCCAL CONJUGATE VACCINE 20-VALENT (PCV20), POLYSACCHARIDE [id number] CONJUGATE, ADJUVANT 0.5 ML (PF) IM 06/28/2023 INFLUENZA VACCINE HIGH DOSE QUADRIVALENT 65 YR UP PF IM 06/28/2023 INFLUENZA VACCINE HIGH DOSE TRIVALENT SPLIT VIRUS, (65 YR UP), 0.5ML (PF), IM 06/16/2024 Social History Tobacco Use Types Packs/Day Years Used Date Smoking Tobacco: Never Assessed Comments Unknown Sex and Gender Information Value Date Recorded Sex Assigned at Female 05/11/2024 10:02 AM CDT Legal Sex Female 3:27 PM CDT Gender Identity Female 05/11/2024 10:02 AM CDT Sexual Orientation Bisexual 05/11/2024 10 :02 AM CDT Plan of Treatment Health Maintenance Due Date Last Done Comments DTAP/TDAP/TD VACCINES (1 - Tdap) 1959 ZOSTER VACCINE (1 of 2) 1990 OSTEOPOROSIS SCREENING 2005 RSV VACCINE (60+ or ) (1 - 1-dose 75+ series) 2015 COVID-19 Vaccine (3 - season) 01/13/202508/2024, 08/01/2023 PNEUMOCOCCAL VACCINE 50+ YEARS Completed 06/28/2023 INFLUENZA VACCINE Completed 06/16/2024, 06/28/2023 Insurance RX AET[employer] Medicare Part D RX [employer] (INTERNAL) [facility]
== END 2024-11-15 15:01 | disposition home or self-care (01) ==
LOC: ANHIMG 15:03
PROVIDERS: PCP Internal Medicine; Visit Provider Internal Medicine
DX: Z12.31 Encounter for screening mammogram for malignant neoplasm of breast (principal)
CPT/HCPCS: 77063; 77067

== ENCOUNTER 2025-03-13 12:57 | Outpatient (CLI) | payer MEDICARE, SELFPAY ==
--- NOTE | ~2025-03-13 | US_ITS ---
US renal BI Ordering provider: Nahomy Amato MD History: . N18.31 - Chronic kidney disease, stage 3a . Comparison: None. Technique: Ultrasound bilateral kidneys. Findings: RIGHT KIDNEY: Measures 8.9x 3.8x 3.6 cm in length which is normal in size. No renal cysts. No renal m ass or visualized echogenic stones. Otherwise, normal echotexture and contour. Mild hydronephrosis. N ormal renal cortical thickness. LEFT KIDNEY: Measures 8.9x 5.1x 3.9 cm in length which is normal in size. No renal cysts. No renal ma ss or visualized echogenic stones. Otherwise, normal echotexture and contour. Mild hydronephrosis. No rmal renal cortical thickness. BLADDER: Normal. IMPRESSION: Bilateral mild hydronephrosis. Other appearances are unremarkable. Reviewed, dictated and finalized at location A.
== END 2025-03-13 12:58 | disposition home or self-care (01) ==
LOC: GOSHIMG 12:58
PROVIDERS: PCP Nurse Practitioner; Visit Provider Internal Medicine Nephrology
DX: I12.9 Hypertensive chronic kidney disease with stage 1 through stage 4 chronic kidney disease, or unspecified chronic kidney disease (principal); N18.31 Chronic kidney disease, stage 3a
CPT/HCPCS: 76775

== ENCOUNTER 2025-06-16 09:24 | Outpatient (CLI) | payer MEDICARE, SELFPAY ==
--- NOTE | ~2025-06-16 | NM_ITS ---
EXAMINATION: NM jesus stress w perfusion DATE: 06/16/2025 12:00 INDICATION: Chest pain, unspecified. TECHNIQUE: Rest images were obtained following intravenous administration of 11.7 mCi Tc99m tetrofosmin (Myoview). The patient was infused intravenously with Lexiscan (regadenoson). Then, 33 mCi Tc99m tetrofosmin (Myoview) was administered intravenously, and stress images were obtained. Data was recons tructed into short axis and horizontal and vertical long axis SPECT images. Gated SPECT images were also obtained. COMPARISON: None. FINDINGS: There is no definite reversible or fixed perfusion abnormality to suggest ischemia or infarction. There is no segmental wall motion abnormality. Left ventricular ejection fraction measures >70%. IMPRESSION: 1. No definite ischemia or infarct. 2. Normal left ventricular ejection fraction measuring >70%. Reviewed, dictated and finalized at location E.
--- NOTE | 2025-06-16 09:40 | EST_ITS ---
Patient Info Name: Melissa Arauz Age: 85 years : 1940 Gender: Female Ht: 60 in Wt: 160 lbs BSA: 1.78 m2 HR: 68 bpm BP: 191 / 81 mmHg Exam Date: 06/16/2025 9:40 AM Patient Status: O Admit Date: 06/16/2025 Exam Type: CA stress jesus w NM A regadenoson stress test was performed. Staff Referring Physician: Meena Pritchard Attending Provider: Meena Pritchard Exercise Technologist: Elisabet Beard Exercise Physician: Kyle Pereira DO Summary 1. 1. Negative lexiscan stress test for ischemic ST changes by ECG criteria. 2. 2. Stable hemodynamics throughout the test. 3. 3. Nuclear scan to follow and will be reported separately. Please correlate with it. 4. 4. Patient informed of the above results. Protocol: Lexiscan Stress ECG Details Stage: REST Duration (min): 0 min : 57 sec HR (bpm): 61 SBP (mmHg): 136 DBP (mmHg): 67 Stage: REST Duration (min): 13 min : 42 sec HR (bpm): 57 SBP (mmHg): 136 DBP (mmHg): 67 Stage: STAGE 1 Duration (min): 0 min : 59 sec HR (bpm): 71 SBP (mmHg): 136 DBP (mmHg): 67 Stage: RECOVERY Duration (min): 1 min : 0 sec HR (bpm): 76 SBP (mmHg): 136 DBP (mmHg): 67 Stage: RECOVERY Duration (min): 2 min : 0 sec HR (bpm): 75 SBP (mmHg): 136 DBP (mmHg): 67 Stage: RECOVERY Duration (min): 3 min : 0 sec HR (bpm): 72 SBP (mmHg): 142 DBP (mmHg): 46 Stage: RECOVERY Duration (min): 3 min : 33 sec HR (bpm): 70 SBP (mmHg): 142 DBP (mmHg): 46 Rest HR: 57 bpm Peak HR: 76 bpm Rest Sys BP: 136 mmHg Peak Sys BP: 142 mmHg Max Pred HR: 135 bpm % Max Pred HR: 56 % Target HR: 115 bpm Max RPP: 10,792 bpm*mmHg Termination Reason: Completed protocol Cardiac Symptoms: Shortness of breath, Stomach discomfort Total Time: 1 min : 0 sec Rest Majano BP: 67 mmHg Peak Majano BP: 46 mmHg Total Dose: 0.4 mg Resting ECG Sinus bradycardia. Stress ECG No ST changes. Arrhythmias None. Report Signatures
--- OUTSIDE RECORDS SUMMARY | 2025-06-16 09:56 | XMS_ITS | Clinical Summary ---
Author Organization [facility] Address [address] [place] [address] Care Team Providers Care Field Attendant Name Role Phone Gokul Albarran MD Primary Care Provider Source Comments [facility] Affiliates and Associated Physician Practices is amultiple site organization consisting of ambulatory clinics and hospital sitesin [place], [place], [place]. This disclosure is being madepursuant to the Care Everywhere program and may not contain all information available regarding this patient. Last updated 18.[facility] Allergies Active Allergy Reactions Criticality Noted Date Comments Codeine Dizziness 05/07/2021 Reaction: Dizziness, Medications * Be aware that medications may not be up to date on this document. Alwaysverify current medications with the patient. amLODIPine (NORVASC) 5 MG tablet 05/03/2021 Active atorvastatin (LIPITOR) 20 MG tablet 02/10/2021 Active celecoxib (CELEBREX) 100 MG capsule 02/10/2021 Active clonazePAM (KLONOPIN) 0.5 MG tablet 11/15/2020 Active fluticasone propionate (FLONASE) 50 MCG/ACT nasal spray 05/03/2021 Active hydroCHLOROthiaz kasia (HYDRODIURIL) 25 MG tablet 05/03/2021 Active levothyroxine (SYNTHROID) 100 MCG tablet 05/03/2021 Active montelukast (SINGULAIR) 10 MG tablet 05/03/2021 Active nitrofurantoin monohyd macro crystals (MACROBID) 100 MG capsule 03/04/2021 Active olopatadine (PATADAY) 0.2 % ophthalmic solution 06/09/2020 Active predniSONE (DELTASONE) 20 MG tablet 04/22/2021 Active triamcinolone acetonide (KENALOG) 0.1 % cream 04/26/2021 Active vitamin D3 (D--NI) 10 MCG (400 UNITS)/ML solution Take 1,000 Units by mouth Active Active Problems No known active problems Social History Tobacco Use Types Packs/Day Years Used Date Smoking Tobacco: Never Smokeless Tobacco: Never Comments Unknown Sex and Gender Information Value Date Recorded Sex Assigned at Female 05/28/2021 5:56 PM CDT Legal Sex Female 6:18 AM CLINICAL RESEARCH ANALYST Gender Identity Female 05/28/2021 5:56 PM CDT [...] yrs (1 - 1-dose 75+ series) 2015 DEPRESSION SCREENING 09/04/2024 MEDICARE AWV CALENDAR YEAR 2024 COVID-19 VACCINE (1 - 2023-2 5 season) 2025 INFLUENZA VACCINE (#1) 2025 HEPATITIS B VACCINE Aged Out No longe [...] on patient's age to complete this topic Insurance [facility] MANAGED MEDICARE ADV AETNA MEDICARE ADV Care Teams Field Attendant Relationship Specialty Start Date End Date Gokul Albarran MD [address] [place] [address] PCP - General 12/15/20
--- OUTSIDE RECORDS SUMMARY | 2025-06-16 09:56 | XMS_ITS | Encounter Summary ---
Author Organization [facility] Address [facility] [facility] [place] [address] Care Team Providers Care Forestry Adviser Name Role Phone Gokul Albarran MD Primary Care Provider [phone] Encounter Details Date Type Department Care Team (Late st Contact Info) Description 03/19/2021 Lab Requisition [facility] DermPath Lab [address] [facility] [place] [address] Jose William MD [address] [place] [address] Social History Tobacco Use Types Packs/Day Years Used Date Smoking Tobacco: Never Assessed Comments Unknown Sex and Gender Information Value Date Recorded Sex Assigned at Female 05/28/2021 5:56 PM CDT 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 Gender Identity Female 05/28/2021 5:56 PM CDT Sexual Orientation Straight 05/28/2021 5: 56 PM CDT documented as of this encounter Plan of Treatment Not on file documented as of this encounter Procedures Procedure Name Priority Date/Time Associated Diagnosis Comments DERMATOPATHOLOGY Routine 03/17/2021 3:33 AM CDT documented in this encounter Results * DERMATOPATHOLOGY (03/17/2021 3:33 AM CDT) Case Report Dermatopathology Report Case: [id number] Authorizing Provider: Jose William MD Collected: 03/17/2021 03:33 AM Ordering Location: [facility] DermPath Lab Received: 03/19/2021 05:39 AM Pathologist: Stacey Padilla MD Specimens: A) - Skin, right ant lower leg B) - Skin, left post lower leg 4:32 PM CDT DERMATOPATHOLOGY LABORATORY Final Diagnosis Specimen A. SKIN, right ant lower leg: SQUAMOUS CELL CARCINOMA, WELL DIFFERENTIATED (C44.722) Specimen B. SKIN, left post lower leg: SQUAMOUS CELL CARCINOMA, WELL DIFFERENTIATED (C44.729) 4:32 PM CDT DERMATOPATHOLOGY LABORATORY at 1632 CDT Clinical History A: SCCA vs other. Path # [id number]. B: SCCA vs other. Path # [id number]. 4:32 PM CDT DERMATOPATHOLOGY LABORATORY Gross Description Specimen A: Received is one formalin filled container labeled with the patient's name and designated right ant lower leg. The specimen consists of a shave biopsy measuring [id number]. Jar 0. Specimen B: Received is one formalin filled container labeled with the patient's name and designated left post lower leg. The specimen consists of a shave biopsy measuring [id number]. Jar 0. 4:32 PM CDT DERMATOPATHOLOGY LABORATORY Microscopic Description Specimen [...] showing evidence of premature cornification. 4:32 PM CDT DERMATOPATHOLOGY LABORATORY Disclaimer An external and internal positive and negative controls are appropriate for the histochemical, immunohistochemical and immunofluorescence stain(s) in this case (if any), except where stated explicitly. The performance characteristics of the stain(s) cited in this report were developed and its performance characteristic determined by the Dermatopathology Laboratory at [facility], directed by Dr. Dylan Castle. These tests need not be, and therefore are not, approved by the [place] Food and Drug Administration. The tests are used for clinical purposes. Billing Codes Specimen Charges Stain Charges 73605 62903 1 1 1 4:32 PM CDT DERMATOPATHOLOGY LABORATORY Embedded Images 1 4:32 PM CDT DERMATOPATHOLOGY LABORATORY Pathology/Cytology TISSUE SPECIMEN FROM SKIN / Unknown 03/17/2021 3:33 AM CDT 03/19/2021 5:39 AM CDT Miscellaneous samples (specimen) TISSUE SPECIMEN FROM SKIN / Unknown 03/17/2021 3:33 AM CDT 03/19/2021 5:39 AM CDT us Jose William MD LAB - PATHOLOGY/CYTOLOGY ORDER JEREMÍAS Final Result DERMATOPATHOLOGY LABORATORY [facility] - Department of Dermatology [facility] Medicine [address] [place] [address], [address] [phone] documented in this encounter Visit Diagnoses Not on filedocumented in this encounter Care Teams Forestry Adviser Relationship Specialty Start Date End Date Gokul Albarran MD [address] [place] [address] PCP - General 12/15/20 documented as of this encounter
--- OUTSIDE RECORDS SUMMARY | 2025-06-16 09:56 | XMS_ITS | Encounter Summary ---
Author Organization [facility] Address [facility] [facility] [address] Care Team Providers Care Event Promotions Coordinator Name Role Phone Gokul Albarran MD Primary Care Provider Encounter Details Date Type Department Care Team (Late st Contact Info) Description 03/21/2024 Lab Requisition [facility] - DermPath Lab [address] [facility] [place] [address] Landy Najera DO [address] [facility] [address] [place] [address] Social History Tobacco Use Types Packs/Day Years Used Date Smoking Tobacco: Never Smokeless Tobacco: Never Comments Unknown Sex and Gender Information Value Date Recorded Sex Assigned at Female 05/28/2021 5:56 PM CDT 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 Gender Identity Female 05/28/2021 5:56 PM CDT Sexual Orientation Straight 05/28/2021 5: 56 PM CDT documented as of this encounter Plan of Treatment Not on file documented as of this encounter Procedures Procedure Name Priority Date/Time Associated Diagnosis Comments DERMATOPATHOLOGY Routine 03/21/2024 2:52 PM CDT documented in this encounter Results * DERMATOPATHOLOGY (03/21/2024 2:52 PM CDT) Case Report Dermatopathology Report Case: [id number] Authorizing Provider: Landy Najera DO Collected: 03/21/2024 02:52 PM Ordering Location: [facility] - Received: [...] comment) 4 3:12 PM CDT DERMATOPATHOLOGY LABORATORY at 1512 CDT Clinical History A: R/O BCC B: Hypertrophic [...] measuring 9x8x2 mm. Jar 0. 3:12 PM CDT DERMATOPATHOLOGY LABORATORY Microscopic Description Specimen [...] characteristic determined by the Dermatopathology Laboratory at [facility], directed by Dr. Dylan Castle. These tests need not be, and therefore are not, approved by the [place] Food and Drug Administration. The tests are used for clinical purposes. Billing Codes Specimen Charges Stain Charges 14896 46250 1 1 01710 1 4 3:12 PM CDT DERMATOPATHOLOGY LABORATORY Embedded Images 4 3:12 PM CDT DERMATOPATHOLOGY LABORATORY Pathology/Cytology TISSUE SPECIMEN FROM SKIN / Unknown 03/21/2024 2:52 PM CDT 03/25/2024 7:38 AM CDT Miscellaneous samples (specimen) TISSUE SPECIMEN FROM SKIN / Unknown 03/21/2024 2:52 PM CDT 03/25/2024 7:38 AM CDT Landy Najera DO LAB - PATHOLOGY/CYTOLOGY ORDERABLES Final Result DERMATOPATHOLOGY LABORATORY [facility] - Department of Dermatology [facility] Medicine [address] [place] [address], [address]rd [place] [address], [facility] [phone] documented in this encounter Visit Diagnoses Not on filedocumented in this encounter Care Teams Event Promotions Coordinator Relationship Specialty Start Date End Date Gokul Albarran MD [address] [place] [address] PCP - General 12/15/20 documented as of this encounter
--- OUTSIDE RECORDS SUMMARY | 2025-06-16 09:56 | XMS_ITS | Clinical Summary ---
Author Organization [facility] Address [address] [facility] Attn: Epic Prelude ADT [place] [address] Care Team Providers Care Chalk Tester Name Role Phone Omega Parker Primary Care Provider Allergies Active Allergy Reactions Criticality Noted Date Comments Codeine Unknown 04/12/2023 Nitrofurantoin Monohyd/M-Cryst Unknown 04/12 Medications levothyroxine 100 mcg tablet Take 1 tablet by mouth daily. 90 Tablet 4 04/24/2022 2:14 PM CDT 2 Active mupirocin (BACTROBAN) 2 % Ointment Apply topically 2-3 times a day until symptoms resolved as directed 22 Gram 05/05/2022 5:31 PM CDT 2 Active amoxicillin (AMOXIL) 500 mg capsule Take 4 (four) capsules by mouth 1 (one) hour prior to each dental appointment. 12 Capsule 05/25/2022 6:43 PM CDT 2 Active pravastatin (PRAVACHOL) 10 mg tablet Take 1 Tablet (10 mg) by mouth daily. 90 Tablet 4 04/24/2023 5:43 PM CDT 2 Active nirmatrelvir-rit onavir (Paxlovid, EUA,) 300(150mg x 2)-100 mg oral pack Take TWO 150 mg tablets of nirmatrelvir with ONE 100 mg tablet of ritonavir by mouth twice daily for 5 days. 30 Each 3 Active triamcinolone acetonide (KENALOG) 0.1 % Cream Apply twice daily over affected areas on the arms for no more than 3 weeks in a row. 80 Gram 11/01/2022 6:35 PM BOBBIN FIXER 3 Active mupirocin (BACTROBAN) 2 % Ointment Apply 2-3 times a day until symptoms resolved 44 Gram 11/11/2022 5:48 PM BOBBIN FIXER 3 Active amoxicillin (AMOXIL) 875 mg tablet Take one tablet by mouth twice daily until gone 14 Tablet 12/30/2022 6:02 PM CDT 3 Active acitretin (SORIATANE) 25 mg Capsule Take 1 Capsule (25 mg) by mouth daily. 30 Capsule 01/17/2023 6:40 PM CDT 3 Active clobetasoL (TEMOVATE) 0.05 % Ointment Apply to affected areas twice daily until follow up in 3 weeks 45 Gram 1 01/17/2023 6:40 PM CDT 3 Active mupirocin (BACTROBAN) 2 % Ointment Apply twice daily to the affected areas on the legs until healed 22 Gram 1 08/01/2023 3:56 PM BOBBIN FIXER 3 Active clobetasoL (TEMOVATE) 0.05 % Ointment Apply to affected areas twice daily until follow up in 3 weeks. 45 Gram 1 05/27/2023 8:37 AM CDT 3 Active mupirocin (BACTROBAN) 2 % Ointment Apply twice daily to the affected areas on the legs until healed 22 Gram 1 10/04/2023 12:03 PM BOBBIN FIXER 3 Active amoxicillin (AMOXIL) 500 mg capsule TAKE 4 CAPSULES BY MOUTH 1 HOUR PRIOR TO EACH DENTAL APPOINTMENT 12 Capsule 02/24/2023 6:21 PM CDT 3 Active clonazePAM (KlonoPIN) 0.5 mg Tablet Take 1 Tablet (0.5 mg) by mouth daily. 90 Tablet 1 07/24/2023 4:32 PM BOBBIN FIXER 3 Active acitretin (SORIATANE) 10 mg Capsule Take 1 Capsule (10 mg) by mouth daily. 30 Capsule 1 06/07/2023 5:42 PM CDT 3 Active mupirocin (BACTROBAN) 2 % Ointment Apply to open sores on lower legs 2 times daily. 22 Gram 1 06/30/2024 12:59 PM CDT 3 Active amLODIPine (NORVASC) 5 mg tablet Take 1 Tablet (5 mg) by mouth daily. 90 Tablet 1 01/15/2024 6:47 PM CDT 4 Active hydroCHLOROthiaz kasia 25 mg tablet TAKE ONE TABLET BY MOUTH ONCE DAILY 90 Tablet 1 01/15/2024 6:47 PM CDT 4 Active levothyroxine 112 mcg tablet Take 1 Tablet (112 mcg) by mouth daily. 90 Tablet 1 01/15/2024 6:47 PM CDT 4 Active montelukast (SINGULAIR) 10 mg tablet Take 1 Tablet (10 mg) by mouth daily. 90 Tablet 1 01/15/2024 6:47 PM CDT 4 Active clobetasoL (TEMOVATE) 0.05 % Ointment Apply to leg(s) two times daily for 14 days, then use as needed. 60 Gram 2 11/20/2023 5:48 PM CDT 4 Active silver sulfADIAZINE (Silvadene) 1 % Cream Apply to open wounds on legs two times daily. 85 Gram 1 06/30/2024 12:59 PM CDT 4 Active ruxolitinib (Opzelura) 1.5 % Cream Apply to arms and legs two times daily as needed. 60 Gram 6 04/18/2024 6:10 PM CDT 4 Active cephALEXin (KEFLEX) 500 mg capsule Take 1 capsule by mouth twice daily for 10 days 20 Capsule 02/07/2024 4:56 PM CDT 4 Active gentamicin (GARAMYCIN) 0.1 % Ointment APPLY TO OPEN SORES TWICE DAILY. 15 Gram 03/09/2024 12:27 PM CDT 4 Active methotrexate (RHEUMATREX) 2.5 mg Tablet Take 6 Tablets (15 mg) by mouth once weekly on Monday. 24 Tablet 3 06/30/2024 12:59 PM CDT 4 Active folic acid (FOLVITE) 1 mg tablet Take 1 Tablet (1 mg) by mouth daily. 30 Tablet 3 06/30/2024 12:59 PM CDT 4 Active nitrofurantoin (MACROBID) 100 mg capsule Take 1 Capsule (100 mg) by mouth every 12 hours for 5 days. Must administer with a meal/food. 10 Capsule 06/06/2024 5:44 PM CDT 4 Active clobetasoL (TEMOVATE) 0.05 % Ointment Apply to legs twice daily 60 Gram 3 06/30/2024 12:59 PM CDT 4 Active clonazePAM (KlonoPIN) 0.5 mg Tablet Take 1 Tablet (0.5 mg) by mouth daily. 90 Tablet 1 09/30/2024 12:58 PM BOBBIN FIXER 4 Active fluticasone propionate (FLONASE) 50 mcg/spray [place], Suspension nasal inhaler SPRAY 2 SPRAYS IN EACH NOSTRIL ONCE DAILY 48 Gram 1 07/16/2024 12:57 PM BOBBIN FIXER 4 Active amoxicillin (AMOXIL) 500 mg capsule Take 4 Capsules (2,000 mg) by mouth one time 1 hour prior to appointment. 12 Capsule 07/31/2024 1:19 PM BOBBIN FIXER 4 Active triamcinolone acetonide (KENALOG) 0.1 % Cream Apply twice daily to affected areas on arms for no more than 3 weeks in a row. 80 Gram 2 05/22/2025 10:44 AM CDT 5 Active triamcinolone acetonide (KENALOG) 0.1 % Cream Apply twice daily to affected areas on arms for no more than 3 weeks in a row. 80 Gram 2 03/26/2025 5:28 PM CDT 5 Active predniSONE (DELTASONE) 10 mg tablet TAKE 6 TABLETS BY MOUTH DAILY FOR 3 DAYS, THEN 5 TABS FOR 3 DAYS, THEN 4 TABS FOR 3 DAYS, THEN 3 TABS FOR 3 DAYS, THEN 2 TABS FOR 3 DAYS, THEN 2 TABS FOR 3 DAYS, AND THEN 1 TAB FOR 3 DAYS 63 Tablet 11/17/2024 4:01 PM CDT 5 Active hydroxychloroqui ne (PLAQUENIL,SOVUN A) 200 mg tablet Take 1 tablet by mouth once a day 30 Tablet 6 05/16/2025 10:21 AM CDT 5 Active celecoxib (CeleBREX) 100 mg capsule Take one capsule (100 MG) orally twice a day 180 Capsule 1 06/10/2025 7:48 PM CDT Active famotidine (PEPCID) 20 mg tablet Take 1 Tablet (20 mg) by mouth daily. 90 Tablet 1 04/02/2025 5:03 PM CDT Active pravastatin (PRAVACHOL) 10 mg tablet Take 1 Tablet (10 mg) by mouth daily. 90 Tablet 1 04/22/2025 10:59 AM CDT Active clonazePAM (KlonoPIN) 0.5 mg Tablet Take 1 Tablet (0.5 mg) by mouth daily. 90 Tablet 1 05/16/2025 10:21 AM CDT Active loteprednol etabonate (LOTEMAX) 0.5 % gel Administer 1 Drop in both eyes 3 times daily. 5 Gram 02/14/2025 4:17 PM CDT Active hydroCHLOROthiaz kasia 25 mg tablet Take 1 Tablet (25 mg) by mouth daily. 90 Tablet 1 05/16/2025 10:21 AM CDT Active silver sulfADIAZINE (SSD) 1 % Cream Apply a small amount to affected area twice a day. Apply to legs. 50 Gram 2 03/26/2025 5:28 PM CDT Active timolol hemihydrate (BETIMOL) 0.5% solution Administer 1 Drop to peripheral of leg ulcer area (0.5 - 1.0 cm) 2 times daily. 15 mL 6 05/26/2025 2:32 PM CDT Active montelukast (SINGULAIR) 10 mg tablet Take 1 Tablet (10 mg) by mouth daily. 90 Tablet 1 05/26/2025 2:32 PM CDT Active levothyroxine 112 mcg tablet Take 1 Tablet (112 mcg) by mouth daily. 90 Tablet 1 04/22/2025 10:59 AM CDT Active amLODIPine (NORVASC) 5 mg tablet Take 1 Tablet (5 mg) by mouth daily. 90 Tablet 1 04/22/2025 10:59 AM CDT Active silver sulfADIAZINE (SSD) 1 % Cream Apply a small amount to affected area of legs twice a day 50 Gram 2 06/10/2025 7:48 PM CDT 5 Active loteprednol etabonate (LOTEMAX) 0.5 % gel Instill 1 drop into both eyes twice a day 5 Gram 05/16/2025 10:21 AM CDT 5 Active Encounters Date Type Department Care Team Description 06/10/2025 External Device Data STL ABSTRACTION Provider, Abstract 06/10/2025 External Device Data STL ABSTRACTION Provider, Abstract 04/09/2025 External Device Data ST[facility] ABSTRACTION Provider, Abstract from Last 3 Months Immunizations Immunization Administration Dates Next Due (COMRINATY 2024-)(12YR UP) COVID-19 VACCINE, MRNA (PF)30 MCG/0.3 ML, IM SYRINGE 07/16/2024,08/01/2023 (PREVNAR 20)(6 WKS UP) PNEUM OCOCCAL CONJUGATE VACCINE 20-VALENT (PCV20), POLYSACCHARIDE [id number] CONJUGATE, ADJUVANT 0.5 ML (PF) IM 06/28/2023 [...] 10 :02 AM CDT Plan of Treatment Upcoming Encounters Date Type Department Care Team (Late st Contact Info) Description 07/22/2025 1:30 PM BOBBIN FIXER Office Visit [facility] Oncology and Hematology - [place] [address] [place] [address] Arlene Sin MD [address] [place] [address] Health Maintenance Due Date Last Done Comments DTAP/TDAP/TD VACCINES (1 - Tdap) 1959 ZOSTER VACCINE (1 of 2) 1959 OSTEOPOROSIS SCREENING 2005 RSV VACCINE (60+ or ) (1 - 1-dose 75+ series) 2015 COVID-19 Vaccine (3 - Pfizer risk series) 08/13/2024 07/16/2024, 08/01/2023 INFLUENZA VACCINE (#1) 2025 06/16/2024, 2022 PNEUMOCOCCAL VACCINE 50+ YEARS Completed 06/28/2023 Insurance RX AETNA Medicare Part D RX [employer] (INTERNAL) [facility] AETNA PPO [facility] Care Teams Chalk Tester Relationship Specialty Start Date End Date Omega Parker DO [address] [facility] [address] [place] [address] PCP - General Internal Medicine 06/04/25
--- OUTSIDE RECORDS SUMMARY | 2025-06-16 09:56 | XMS_ITS | Encounter Summary ---
Author Organization [facility] Address [facility] [facility] [place] [address] Care Team Providers Care Final Inspector And Tester Name Role Phone Gokul Albarran MD Primary Care Provider [phone] Encounter Details Date Type Department Care Team (Late st Contact Info) Description 04/24/2021 Lab Requisition [facility] DermPath Lab [address] [facility], [place] [address] Jose William MD [address] [place] [address] Social History Tobacco Use Types Packs/Day Years Used Date Smoking Tobacco: Never Assessed Comments Unknown Sex and Gender Information Value Date Recorded Sex Assigned at Female 05/28/2021 5:56 PM CDT 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 Gender Identity Female 05/28/2021 5:56 PM CDT Sexual Orientation Straight 05/28/2021 5: 56 PM CDT documented as of this encounter Plan of Treatment Not on file documented as of this encounter Procedures Procedure Name Priority Date/Time Associated Diagnosis Comments DERMATOPATHOLOGY Routine 04/22/2021 3:33 AM CDT documented in this encounter Results * DERMATOPATHOLOGY (04/22/2021 3:33 AM CDT) Case Report Dermatopathology Report Case: [id number] Authorizing Provider: Jose Wliliam MD Collected: 04/22/2021 03:33 AM Ordering Location: [facility] DermPath Lab Received: 04/24/2021 02:45 PM Pathologist: Hawa Ayala MD Specimen: Skin, right back 2:46 PM CDT DERMATOPATHOLOGY LABORATORY Final Diagnosis Specimen A. SKIN, right back: SPONGIOTIC DERMATITIS WITH EOSINOPHILS (L30.8) (see microscopic description and comment) 2:46 PM CDT DERMATOPATHOLOGY LABORATORY at 1446 CDT Clinical History ACD vs drug eruption vs BP. Path # [id number]. 2:46 PM CDT DERMATOPATHOLOGY LABORATORY Gross Description Specimen A: Received is one formalin filled container labeled with the patient's name and designated right back. The specimen consists of a shave biopsy measuring [id number]. Jar 0. 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 1 2:46 PM CDT DERMATOPATHOLOGY LABORATORY Disclaimer An external and internal positive and negative controls are appropriate for the histochemical, immunohistochemical and immunofluorescence stain(s) in this case (if any), except where stated explicitly. The performance characteristics of the stain(s) cited in this report were developed and its performance characteristic determined by the Dermatopathology Laboratory at [facility], directed by Dr. Dylan Castle. These tests need not be, and therefore are not, approved by the [place] Food and Drug Administration. The tests are used for clinical purposes. Billing Codes Specimen Charges Stain Charges 07086 1 19850 1 1 2:46 PM CDT DERMATOPATHOLOGY LABORATORY Embedded Images 2:46 PM CDT DERMATOPATHOLOGY LABORATORY Pathology/Cytolo gy TISSUE SPECIMEN FROM SKIN / Unknown 04/22/2021 3:33 AM CDT 04/24/2021 2:45 PM CDT Jose William MD LAB - PATHOLOGY/CYTOLOGY ORDER JEREMÍAS Final Result DERMATOPATHOLOGY LABORATORY [facility] - Department of Dermatology [facility] [address] [place] [address], [address] [phone] documented in this encounter Visit Diagnoses Not on filedocumented in this encounter Care Teams Final Inspector And Tester Relationship Specialty Start Date End Date Gokul Albarran MD [address] [place] [address] PCP - General 12/15/20 documented as of this encounter
--- OUTSIDE RECORDS SUMMARY | 2025-06-16 09:56 | XMS_ITS | Encounter Summary ---
Author Organization [facility] Address [facility]3 [facility] [place] [address] Care Team Providers Care Senior Pricing Analyst Name Role Phone Gokul Albarran MD Primary Care Provider Encounter Details Date Type Department Care Team (Late st Contact Info) Description 12/16/2020 Lab Requisition [facility] DermPath Lab [address] [facility], [place] [address] Jose William MD [address] [facility] [place] [address] Social History Tobacco Use Types Packs/Day Years Used Date Smoking Tobacco: Never Assessed Comments Unknown Sex and Gender Information Value Date Recorded Sex Assigned at Female 05/28/2021 5:56 PM CDT 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 Gender Identity Female 05/28/2021 5:56 PM CDT Sexual Orientation Straight 05/28/2021 5: 56 PM CDT documented as of this encounter Plan of Treatment Not on file documented as of this encounter Procedures Procedure Name Priority Date/Time Associated Diagnosis Comments DERMATOPATHOLOGY Routine 12/14/2020 3:33 AM CDT documented in this encounter Results * DERMATOPATHOLOGY (12/14/2020 3:33 AM CDT) Case Report Dermatopathology Report Case: [id number] Authorizing Provider: Jose William MD Collected: 12/14/2020 03:33 AM Ordering Location: [facility] DermPath Lab Received: 12/16/2020 06:43 AM Pathologist: Koby Castle MD Specimen: Skin, right lower leg 2:17 PM CDT DERMATOPATHOLOGY LABORATORY Final Diagnosis Specimen A. 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 Path # [id number]. 2:17 PM CDT DERMATOPATHOLOGY LABORATORY Gross Description Specimen A: Received is one formalin filled container labeled with the patient's name and designated right lower leg. The specimen consists of a shave biopsy measuring [id number]. Jar 0. 2:17 PM CDT DERMATOPATHOLOGY LABORATORY Microscopic Description Specimen A. SKIN, right lower leg: Arising in the epidermis and extending into the dermis there are irregularly shaped aggregates of keratinocytes showing evidence of premature cornification. 1 2:17 PM CDT DERMATOPATHOLOGY LABORATORY Disclaimer An external and internal positive and negative controls are appropriate for the histochemical, immunohistochemical and immunofluorescence stain(s) in this case (if any), except where stated explicitly. The performance characteristics of the stain(s) cited in this report were developed and its performance characteristic determined by the Dermatopathology Laboratory at [facility], directed by Dr. Dylan Castle. These tests need not be, and therefore are not, approved by the [place] Food and Drug Administration. The tests are used for clinical purposes. Billing Codes Specimen Charges Stain Charges 57866 1 1 2:17 PM CDT DERMATOPATHOLOGY LABORATORY Embedded Images 2:17 PM CDT DERMATOPATHOLOGY LABORATORY Pathology/Cytolo gy TISSUE SPECIMEN FROM SKIN / Unknown 12/14/2020 3:33 AM CDT 12/16/2020 6:43 AM CDT us Jose William MD LAB - PATHOLOGY/CYTOLOGY ORDER JEREMÍAS Final Result DERMATOPATHOLOGY LABORATORY [facility] Department of Dermatology [facility] Specialized Medicine [address] [facility], [address] Floor [address] [phone] documented in this encounter Visit Diagnoses Not on filedocumented in this encounter Care Teams Senior Pricing Analyst Relationship Specialty Start Date End Date Gokul Albarran MD [address] [place] [phone] PCP - General 12/15/20 documented as of this encounter
== END 2025-06-16 09:25 | disposition home or self-care (01) ==
PROVIDERS: PCP Internal Medicine; Visit Provider Nurse Practitioner
DX: R07.9 Chest pain, unspecified (principal)
CPT/HCPCS: 78452; 93017; A9502; J2785

== ENCOUNTER 2025-06-23 13:33 | Outpatient (CLI) | payer MEDICARE, SELFPAY ==
--- NOTE | ~2025-06-23 | DEXA_ITS ---
Bone Density Report Name: GET HERMOSILLO Age: 85 Sex: Female Ethnicity: White Date of : 1940 Indication: osteopenia; height loss; history of glucocorticoids; hysterectomy; Referring Provider: CAMILLA BERRY Study: Bone densitometry was performed. Exam Date: June 23, 2025 Accession number: [id number] Bone Density: Region BMD T-score Z-score Classification AP Spine(L1-L4) 1.158 1.0 3.9 Normal Femoral Neck (Left) 0.638 -1.9 0.6 Osteopenia Total Hip (Left) 0.837 -0.9 1.5 Normal Femoral Neck (Right) 0.632 -2.0 0.6 Osteopenia Total Hip (Right) 0.802 -1.1 1.2 Osteopenia Total Hip Mean 0.820 -1.0 1.4 Normal World Health Organization criteria for BMD impression classify patients as: Normal (T-score at or above -1.0), Osteopenia (T-score between -1.0 and -2.5), or Osteoporosis (T-score at or below -2.5). 10-year Fracture Risk(1): Major Osteoporotic Fracture 21% Hip Fracture 7.2% Reported Risk Factors: [place] (), Neck BMD=0.632, BMI=33.3, glucocorticoids (1) FRAX(R) Version 3.08. Fracture probability calculated for an untreated patient. Fracture probability may be lower if the patient has received treatment. Previous Exams: Region Exam Age BMD T-score BMD Change BMD Change Date g/cm2 vs Baseline vs Previous Total Hip(Left) 06/23/2025 85 0.837 -0.9 -0.041 (-4.7%) -0.041 (-4.7%) 05/11/2018 78 0.878 -0.5 Total Hip(Right) 06/23/2025 85 0.802 -1.1 0.028 (3.7%)* 0.028 (3.7%)* 05/11/2018 78 0.774 -1.4 *Denotes significance at 95% confidence level, LSC for Total Hip = 0.027 g/cm2 Clinical Information Provided by Patient: Has taken Glucocorticoids Has used the following medications: Vitamin D, Calcium Has the following medical conditions: Hysterectomy Patient maximum height was 62.0 Menopause Age: 50 No regular weight bearing exercise Onset of menses at age 13 Number of children 2 Impression: The patient has low bone mass, based on the Right Femoral Neck T-score. The patient has an estimated ten-year risk of hip fracture of 7.2% and an estimated ten-year risk of major fracture of 21%, based on the WHO FRAX algorithm. The patient has risk factors, including: history of glucocorticoid therapy. The BMD for the Total Hip(Left) decreased, changing by -4.7% since the last DXA exam. Discussion: BONE DENSITY IS LOW AT ONE OR MORE SKELETAL SITES. THE PATIENT'S BMD AND CLINICAL RISK FACTORS CONTRIBUTE TO THIS PATIENT'S HIGH RISK OF FRACTURE. This patient's lowest T-score is low at one or more skeletal sites. It meets the World Health Organization's (WHO) criteria for ?low bone mass? (T-score between -1.0 and -2.5). The patient's 10-year risk of hip fracture and 10 year risk of a major osteoporotic fracture as calculated by FRAX exceeds the threshold where pharmacological therapy is recommended by the National Osteoporosis Foundation (NOF). However, all treatment decisions require clinical judgment and consideration of individual patient factors, including patient preferences, comorbidities, previous drug use, risk factors not captured in the FRAX model (e.g., frailty, falls, vitamin D deficiency, increased bone turnover, interval significant decline in bone density) and possible under or overestimation of fracture risk by FRAX. The patient should follow a healthful lifestyle (good nutrition with adequate calcium and vitamin D, and appropriate weight-bearing exercise). Follow-Up: Consider a repeat BMD and Vertebral Fracture Assessment (VFA) exam in 2 years or sooner if medically necessary, to reassess this patient's status. Reported by: DAVID on 06/23/2025 2:20:00 PM. Reviewed, dictated and finalized at location A.
--- OUTSIDE RECORDS SUMMARY | 2025-06-23 15:29 | XMS_ITS | Encounter Summary ---
Author Organization [facility] Address [facility]3 [facility] [place] [address] Care Team Providers Care Refractory Specialist Name Role Phone Gokul Albarran MD Primary Care Provider [phone] Encounter Details Date Type Department Care Team (Late st Contact Info) Description 12/16/2020 Lab Requisition 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 DermPath Lab Received: 12/16/2020 06:43 AM Pathologist: Koby Castle MD Specimen: Skin, right lower leg 2:17 PM CDT DERMATOPATHOLOGY LABORATORY Final Diagnosis Specimen A. 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 Path # [id number]. 2:17 PM CDT DERMATOPATHOLOGY LABORATORY Gross Description Specimen A: Received is one formalin filled container labeled with the patient's name and designated right lower leg. The specimen consists of a shave biopsy measuring [id number]. Jar 0. 2:17 PM CDT DERMATOPATHOLOGY LABORATORY [...] characteristic determined by the Dermatopathology Laboratory at [facility], directed by Dr. Dylan Castle. These tests need not be, and therefore are not, approved by the [place] Food and Drug Administration. The tests are used for clinical purposes. Billing Codes Specimen Charges Stain Charges 41911 1 1 2:17 PM CDT DERMATOPATHOLOGY LABORATORY Embedded Images 2:17 PM CDT DERMATOPATHOLOGY LABORATORY Pathology/Cytolo gy TISSUE SPECIMEN FROM SKIN / Unknown 12/14/2020 3:33 AM CDT 12/16/2020 6:43 AM CDT us Jose William MD LAB - PATHOLOGY/CYTOLOGY ORDER JEREMÍAS Final Result DERMATOPATHOLOGY LABORATORY [facility] Department of Dermatology [facility] Specialized Medicine [address] [facility] [place], [address] [phone] documented in this encounter Visit Diagnoses Not on filedocumented in this encounter Care Teams Refractory Specialist Relationship Specialty Start Date End Date Gokul Albarran MD [address] [place] [phone] PCP - General 12/15/20 documented as of this encounter
--- OUTSIDE RECORDS SUMMARY | 2025-06-23 15:29 | XMS_ITS | Encounter Summary ---
Author Organization [facility] Address [facility]3 [facility] [place] [address] Care Team Providers Care Metallurgical Tester Name Role Phone Gokul Albarran MD Primary Care Provider Encounter Details Date Type Department Care Team (Late st Contact Info) Description 04/24/2021 Lab Requisition [facility] DermPath Lab [address] [facility], [place] [address] Jose William MD [address] [facility] [place] [address] Social History Tobacco Use Types Packs/Day Years Used Date Smoking Tobacco: Never Assessed Comments Unknown Sex and Gender Information Value Date Recorded Sex Assigned at Female 05/28/2021 5:56 PM CDT 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 Gender Identity Female 05/28/2021 5:56 PM CDT Sexual Orientation Straight 05/28/2021 5: 56 PM CDT documented as of this encounter Plan of Treatment Not on file documented as of this encounter Procedures Procedure Name Priority Date/Time Associated Diagnosis Comments DERMATOPATHOLOGY Routine 04/22/2021 3:33 AM CDT documented in this encounter Results * DERMATOPATHOLOGY (04/22/2021 3:33 AM CDT) Case Report Dermatopathology Report Case: [id number] Authorizing Provider: Jose William MD Collected: 04/22/2021 03:33 AM Ordering Location: [facility] DermPath Lab Received: 04/24/2021 02:45 PM Pathologist: Hawa Ayala MD Specimen: Skin, right back 2:46 PM CDT DERMATOPATHOLOGY LABORATORY Final Diagnosis Specimen A. SKIN, right back: SPONGIOTIC DERMATITIS WITH EOSINOPHILS (L30.8) (see microscopic description and comment) 2:46 PM CDT DERMATOPATHOLOGY LABORATORY at 1446 CDT Clinical History ACD vs drug eruption vs BP. Path # [id number]. 2:46 PM CDT DERMATOPATHOLOGY LABORATORY Gross Description Specimen A: Received is one formalin filled container labeled with the patient's name and designated right back. The specimen consists of a shave biopsy measuring [id number]. Jar 0. 2:46 PM CDT DERMATOPATHOLOGY LABORATORY [...] characteristic determined by the Dermatopathology Laboratory at [facility], directed by Dr. Dylan Castle. These tests need not be, and therefore are not, approved by the [place] Food and Drug Administration. The tests are used for clinical purposes. Billing Codes Specimen Charges Stain Charges 19003 1 21353 1 1 2:46 PM CDT DERMATOPATHOLOGY LABORATORY Embedded Images 2:46 PM CDT DERMATOPATHOLOGY LABORATORY Pathology/Cytolo gy TISSUE SPECIMEN FROM SKIN / Unknown 04/22/2021 3:33 AM CDT 04/24/2021 2:45 PM CDT Jose William MD LAB - PATHOLOGY/CYTOLOGY ORDER JEREMÍAS Final Result DERMATOPATHOLOGY LABORATORY [facility] - Department of Dermatology [facility] Specialized Medicine [address] [place] [address], [address] [phone] documented in this encounter Visit Diagnoses Not on filedocumented in this encounter Care Teams Metallurgical Tester Relationship Specialty Start Date End Date Gokul Albarran MD [address] [place] [phone] PCP - General 12/15/20 documented as of this encounter
--- OUTSIDE RECORDS SUMMARY | 2025-06-23 15:29 | XMS_ITS | Encounter Summary ---
Author Organization [facility] Address [facility]3 [facility] [place] [address] Care Team Providers Care Powder Hand Name Role Phone Gokul Albarran MD Primary Care Provider [phone] Encounter Details Date Type Department Care Team (Late st Contact Info) Description 03/19/2021 Lab Requisition [facility] DermPath Lab [address] [facility], [place] [address] Jose William MD [address] [place] [address] Social History Tobacco Use Types Packs/Day Years Used Date Smoking Tobacco: Never Assessed Comments Unknown Sex and Gender Information Value Date Recorded Sex Assigned at Female 05/28/2021 5:56 PM CDT 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 Gender Identity Female 05/28/2021 5:56 PM CDT Sexual Orientation Straight 05/28/2021 5: 56 PM CDT documented as of this encounter Plan of Treatment Not on file documented as of this encounter Procedures Procedure Name Priority Date/Time Associated Diagnosis Comments DERMATOPATHOLOGY Routine 03/17/2021 3:33 AM CDT documented in this encounter Results * DERMATOPATHOLOGY (03/17/2021 3:33 AM CDT) Case Report Dermatopathology Report Case: [id number] Authorizing Provider: Jose William MD Collected: 03/17/2021 03:33 AM Ordering Location: [facility] DermPath Lab Received: 03/19/2021 05:39 AM [...] History A: SCCA vs other. Path # [id number]. B: SCCA vs other. Path # [id number]. 4:32 PM CDT DERMATOPATHOLOGY LABORATORY Gross Description Specimen A: Received is one formalin filled container labeled with the patient's name and designated right ant lower leg. The specimen consists of a shave biopsy measuring [id number]. Jar 0. Specimen B: Received is one formalin filled container labeled with the patient's name and designated left post lower leg. The specimen consists of a shave biopsy measuring [id number]. Jar 0. 4:32 PM CDT DERMATOPATHOLOGY LABORATORY [...] characteristic determined by the Dermatopathology Laboratory at [facility], directed by Dr. Dylan Castle. These tests need not be, and therefore are not, approved by the [place] Food and Drug Administration. The tests are used for clinical purposes. Billing Codes Specimen Charges Stain Charges 51638 53217 1 1 1 4:32 PM CDT DERMATOPATHOLOGY [...] [facility] - Department of Dermatology [facility] Medicine [address] [place] [address], [address] [phone] documented in this encounter Visit Diagnoses Not on filedocumented in this encounter Care Teams Powder Hand Relationship Specialty Start Date End Date Gokul Albarran MD [address] [place] [address] PCP - General 12/15/20 documented as of this encounter
--- OUTSIDE RECORDS SUMMARY | 2025-06-23 15:29 | XMS_ITS | Encounter Summary ---
Author Organization [facility] Address [facility] [address] Care Team Providers Care Tafe Teacher Name Role Phone Gokul Albarran MD Primary Care Provider Encounter Details Date Type Department Care Team (Late st Contact Info) Description 03/21/2024 Lab Requisition [facility] - DermPath Lab [address] [facility] [place] [phone] Landy Najera DO [address] [facility] [address] [place] [address] Social History Tobacco Use Types Packs/Day Years Used Date Smoking Tobacco: Never Smokeless Tobacco: Never Comments Unknown Sex and Gender Information Value Date Recorded Sex Assigned at Female 05/28/2021 5:56 PM CDT 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 Gender Identity Female 05/28/2021 5:56 PM CDT Sexual Orientation Straight 05/28/2021 5: 56 PM CDT documented as of this encounter Plan of Treatment Not on file documented as of this encounter Procedures Procedure Name Priority Date/Time Associated Diagnosis Comments DERMATOPATHOLOGY Routine 03/21/2024 2:52 PM CDT documented in this encounter Results * DERMATOPATHOLOGY (03/21/2024 2:52 PM CDT) Case Report Dermatopathology Report Case: [id number] Authorizing Provider: Landy Najera DO Collected: 03/21/2024 02:52 PM Ordering Location: [facility] - Received: 03/25/2024 07:38 AM [...] characteristic determined by the Dermatopathology Laboratory at [facility], directed by Dr. Dylan Castle. These tests need not be, and therefore are not, approved by the [place] Food and Drug Administration. The tests are used for clinical purposes. Billing Codes Specimen Charges Stain Charges 94761 00657 1 1 12788 1 4 3:12 PM CDT DERMATOPATHOLOGY LABORATORY Embedded Images 4 3:12 PM CDT DERMATOPATHOLOGY LABORATORY Pathology/Cytology TISSUE SPECIMEN FROM SKIN / Unknown 03/21/2024 2:52 PM CDT 03/25/2024 7:38 AM CDT Miscellaneous samples (specimen) TISSUE SPECIMEN FROM SKIN / Unknown 03/21/2024 2:52 PM CDT 03/25/2024 7:38 AM CDT Landy Najera DO LAB - PATHOLOGY/CYTOLOGY ORDERABLES Final Result DERMATOPATHOLOGY LABORATORY [facility] - Department of Dermatology [facility] Medicine [address] [place] [address], [address] [place] [address], [facility] [phone] documented in this encounter Visit Diagnoses Not on filedocumented in this encounter Care Teams Tafe Teacher Relationship Specialty Start Date End Date Gokul Albarran MD [address] [place] [address] PCP - General 12/15/20 documented as of this encounter
--- OUTSIDE RECORDS SUMMARY | 2025-06-23 15:29 | XMS_ITS | Clinical Summary ---
Author Organization [facility] Address [address] [facility] Attn: Epic Prelude ADT LAYNE CHAVEZ [address] Care Team Providers Care Service Crew Supervisor Name Role Phone Omega Parker Primary Care Provider Allergies Active Allergy Reactions Criticality Noted Date Comments Codeine Unknown 04/12/2023 Nitrofurantoin Monohyd/M-Cryst Unknown 04/12 Medications levothyroxine 100 mcg tablet Take 1 tablet by mouth daily. 90 Tablet 4 2 2:14 PM CDT 04/19/20 22 Active mupirocin (BACTROBAN) 2 % Ointment Apply topically 2-3 times a day until symptoms resolved as directed 22 Gram 2 5:31 PM CDT 05/04/20 22 Active amoxicillin (AMOXIL) 500 mg capsule Take 4 (four) capsules by mouth 1 (one) hour prior to each dental appointment. 12 Capsule 2 6:43 PM CDT 05/16/20 22 Active pravastatin (PRAVACHOL) 10 mg tablet Take 1 Tablet (10 mg) by mouth daily. 90 Tablet 4 3 5:43 PM CDT 07/18/20 22 Active nirmatrelvir-rit onavir (Paxlovid, EUA,) 300(150mg x 2)-100 mg oral pack Take TWO 150 mg tablets of nirmatrelvir with ONE 100 mg tablet of ritonavir by mouth twice daily for 5 days. 30 Each 10/15/19 23 Active triamcinolone acetonide (KENALOG) 0.1 % Cream Apply twice daily over affected areas on the arms for no more than 3 weeks in a row. 80 Gram 3 6:35 PM [employer] 10/28/19 23 Active mupirocin (BACTROBAN) 2 % Ointment Apply 2-3 times a day until symptoms resolved 44 Gram 3 5:48 PM [employer] 10/28/19 23 Active amoxicillin (AMOXIL) 875 mg tablet Take one tablet by mouth twice daily until gone 14 Tablet 3 6:02 PM CDT 12/31/19 23 Active acitretin (SORIATANE) 25 mg Capsule Take 1 Capsule (25 mg) by mouth daily. 30 Capsule 3 6:40 PM CDT 01/07/20 23 Active clobetasoL (TEMOVATE) 0.05 % Ointment Apply to affected areas twice daily until follow up in 3 weeks 45 Gram 1 3 6:40 PM CDT 01/14/20 23 Active mupirocin (BACTROBAN) 2 % Ointment Apply twice daily to the affected areas on the legs until healed 22 Gram 1 3 3:56 PM [employer] 01/14/20 23 Active clobetasoL (TEMOVATE) 0.05 % Ointment Apply to affected areas twice daily until follow up in 3 weeks. 45 Gram 1 3 8:37 AM CDT 02/11/20 23 Active mupirocin (BACTROBAN) 2 % Ointment Apply twice daily to the affected areas on the legs until healed 22 Gram 1 4 12:03 PM [employer] 02/11/20 23 Active amoxicillin (AMOXIL) 500 mg capsule TAKE 4 CAPSULES BY MOUTH 1 HOUR PRIOR TO EACH DENTAL APPOINTMENT 12 Capsule 3 6:21 PM CDT 02/21/20 23 Active clonazePAM (KlonoPIN) 0.5 mg Tablet Take 1 Tablet (0.5 mg) by mouth daily. 90 Tablet 1 3 4:32 PM [employer] 03/23/20 23 Active acitretin (SORIATANE) 10 mg Capsule Take 1 Capsule (10 mg) by mouth daily. 30 Capsule 1 3 5:42 PM CDT 06/05/20 23 Active mupirocin (BACTROBAN) 2 % Ointment Apply to open sores on lower legs 2 times daily. 22 Gram 1 4 12:59 PM CDT 08/18/20 23 Active amLODIPine (NORVASC) 5 mg tablet Take 1 Tablet (5 mg) by mouth daily. 90 Tablet 1 4 6:47 PM CDT 10/17/19 24 Active hydroCHLOROthiaz kasia 25 mg tablet TAKE ONE TABLET BY MOUTH ONCE DAILY 90 Tablet 1 4 6:47 PM CDT 10/17/19 24 Active levothyroxine 112 mcg tablet Take 1 Tablet (112 mcg) by mouth daily. 90 Tablet 1 4 6:47 PM CDT 10/17/19 24 Active montelukast (SINGULAIR) 10 mg tablet Take 1 Tablet (10 mg) by mouth daily. 90 Tablet 1 4 6:47 PM CDT 10/17/19 24 Active clobetasoL (TEMOVATE) 0.05 % Ointment Apply to leg(s) two times daily for 14 days, then use as needed. 60 Gram 2 4 5:48 PM CDT 11/17/19 24 Active silver sulfADIAZINE (Silvadene) 1 % Cream Apply to open wounds on legs two times daily. 85 Gram 1 4 12:59 PM CDT 11/17/19 24 Active ruxolitinib (Opzelura) 1.5 % Cream Apply to arms and legs two times daily as needed. 60 Gram 6 4 6:10 PM CDT 12/15/19 24 Active cephALEXin (KEFLEX) 500 mg capsule Take 1 capsule by mouth twice daily for 10 days 20 Capsule 4 4:56 PM CDT 02/07/20 24 Active gentamicin (GARAMYCIN) 0.1 % Ointment APPLY TO OPEN SORES TWICE DAILY. 15 Gram 4 12:27 PM CDT 02/27/20 24 Active methotrexate (RHEUMATREX) 2.5 mg Tablet Take 6 Tablets (15 mg) by mouth once weekly on Monday. 24 Tablet 3 4 12:59 PM CDT 04/01/20 24 Active folic acid (FOLVITE) 1 mg tablet Take 1 Tablet (1 mg) by mouth daily. 30 Tablet 3 4 12:59 PM CDT 04/01/20 24 Active nitrofurantoin (MACROBID) 100 mg capsule Take 1 Capsule (100 mg) by mouth every 12 hours for 5 days. Must administer with a meal/food. 10 Capsule 4 5:44 PM CDT 06/06/20 24 Active clobetasoL (TEMOVATE) 0.05 % Ointment Apply to legs twice daily 60 Gram 3 4 12:59 PM CDT 06/19/20 24 Active clonazePAM (KlonoPIN) 0.5 mg Tablet Take 1 Tablet (0.5 mg) by mouth daily. 90 Tablet 1 5 12:58 PM [employer] 06/27/20 24 Active fluticasone propionate (FLONASE) 50 mcg/spray Levels, Suspension nasal inhaler SPRAY 2 SPRAYS IN EACH NOSTRIL ONCE DAILY 48 Gram 1 4 12:57 PM [employer] 07/12/20 24 Active amoxicillin (AMOXIL) 500 mg capsule Take 4 Capsules (2,000 mg) by mouth one time 1 hour prior to appointment. 12 Capsule 4 1:19 PM [employer] 07/29/20 24 Active triamcinolone acetonide (KENALOG) 0.1 % Cream Apply twice daily to affected areas on arms for no more than 3 weeks in a row. 80 Gram 2 5 10:44 AM CDT 11/07/19 25 Active triamcinolone acetonide (KENALOG) 0.1 % Cream Apply twice daily to affected areas on arms for no more than 3 weeks in a row. 80 Gram 2 5 5:28 PM CDT 11/08/19 25 Active predniSONE (DELTASONE) 10 mg tablet TAKE 6 TABLETS BY MOUTH DAILY FOR 3 DAYS, THEN 5 TABS FOR 3 DAYS, THEN 4 TABS FOR 3 DAYS, THEN 3 TABS FOR 3 DAYS, THEN 2 TABS FOR 3 DAYS, THEN 2 TABS FOR 3 DAYS, AND THEN 1 TAB FOR 3 DAYS 63 Tablet 5 4:01 PM CDT 11/13/19 25 Active hydroxychloroqui ne (PLAQUENIL,SOVUN A) 200 mg tablet Take 1 tablet by mouth once a day 30 Tablet 6 5 10:21 AM CDT 12/13/19 25 Active celecoxib (CeleBREX) 100 mg capsule Take one capsule (100 MG) orally twice a day 180 Capsule 1 5 7:48 PM CDT 12/13/19 25 Active pravastatin (PRAVACHOL) 10 mg tablet Take 1 Tablet (10 mg) by mouth daily. 90 Tablet 1 5 10:59 AM CDT 01/16/20 25 Active clonazePAM (KlonoPIN) 0.5 mg Tablet Take 1 Tablet (0.5 mg) by mouth daily. 90 Tablet 1 5 10:21 AM CDT 01/23/20 25 Active loteprednol etabonate (LOTEMAX) 0.5 % gel Administer 1 Drop in both eyes 3 times daily. 5 Gram 5 4:17 PM CDT 02/12/20 25 Active hydroCHLOROthiaz kasia 25 mg tablet Take 1 Tablet (25 mg) by mouth daily. 90 Tablet 1 5 10:21 AM CDT 02/18/20 25 Active silver sulfADIAZINE (SSD) 1 % Cream Apply a small amount to affected area twice a day. Apply to legs. 50 Gram 2 5 5:28 PM CDT 03/24/20 25 Active timolol hemihydrate (BETIMOL) 0.5% solution Administer 1 Drop to peripheral of leg ulcer area (0.5 - 1.0 cm) 2 times daily. 15 mL 6 5 2:32 PM CDT 04/01/20 25 Active montelukast (SINGULAIR) 10 mg tablet Take 1 Tablet (10 mg) by mouth daily. 90 Tablet 1 5 2:32 PM CDT 04/07/20 25 Active levothyroxine 112 mcg tablet Take 1 Tablet (112 mcg) by mouth daily. 90 Tablet 1 5 10:59 AM CDT 04/17/20 25 Active amLODIPine (NORVASC) 5 mg tablet Take 1 Tablet (5 mg) by mouth daily. 90 Tablet 1 5 10:59 AM CDT 04/17/20 25 Active silver sulfADIAZINE (SSD) 1 % Cream Apply a small amount to affected area of legs twice a day 50 Gram 2 5 7:48 PM CDT 04/24/20 25 Active loteprednol etabonate (LOTEMAX) 0.5 % gel Instill 1 drop into both eyes twice a day 5 Gram 5 10:21 AM CDT 05/09/20 25 Active famotidine (PEPCID) 20 mg tablet Take one tablet (20 MG) orally daily 90 Tablet 1 06/19/20 25 Active famotidine (PEPCID) 20 mg tablet Take 1 Tablet (20 mg) by mouth daily. 90 Tablet 1 5 5:03 PM CDT 12/28/19 25 025 Discontin ued(Reord er) Encounters Date Type Department Care Team Description 06/10/2025 External Device Data [facility] ABSTRACTION Provider, Abstract 06/10/2025 External Device Data [facility] ABSTRACTION Provider, Abstract 04/09/2025 External Device Data [facility] ABSTRACTION Provider, Abstract from Last 3 Months Immunizations Immunization Administration Dates Next Due (COMRINATY)(12YR UP) COVID-1 9 VACCINE, MRNA (PF)30 MCG/0.3 ML, IM SYRINGE 07/16/2024,08/01/2023 (PREVNAR 20)(6 WKS UP) PNEUM OCOCCAL CONJUGATE VACCINE 20-VALENT (PCV20), POLYSACCHARIDE [id number] CONJUGATE, ADJUVANT 0.5 ML (PF) IM 06/28/2023 [...] st Contact Info) Description 07/22/2025 1:30 PM [employer] Office Visit [facility] [place] [address] [place] [address] Arlene Sin MD [address] [place] [address] Health Maintenance Due Date Last [...] PLANS (INTERNAL) [facility] [employer] PPO [facility] Care Teams Service Crew Supervisor Relationship Specialty Start Date End Date Omega Parker DO [address] [address] PCP - General Internal Medicine 06/04/25
--- OUTSIDE RECORDS SUMMARY | 2025-06-23 15:29 | XMS_ITS | Clinical Summary ---
Author Organization [facility] Address [address] [place] [address] Care Team Providers Care Warning Coordination Meteorologist Name Role Phone Gokul Albarran MD Primary Care Provider Source Comments [facility],non-[facility]iliates and Associated Physician Practices is amultiple site organization consisting of ambulatory clinics and hospital sitesin [place], [place], [place] and [place]. This disclosure is being madepursuant to the Care Everywhere program and may not contain all information available regarding this patient. 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
== END 2025-06-23 13:34 | disposition home or self-care (01) ==
PROVIDERS: PCP Internal Medicine; Visit Provider Nurse Practitioner
DX: Z78.0 Asymptomatic menopausal state (principal); M85.852 Other specified disorders of bone density and structure, left thigh; M85.851 Other specified disorders of bone density and structure, right thigh
CPT/HCPCS: 77080

== ENCOUNTER 2025-07-22 14:18 | Outpatient (CLI) | payer MEDICARE, SELFPAY ==
--- OUTSIDE RECORDS SUMMARY | 2025-07-22 13:30 | XMS_ITS | Encounter Summary ---
Author Organization [facility] Address [address] [place] [address] Care Team Providers Care Rehab Director Occupational Therapist Name Role Phone Omega Parker DO Primary Care Provider Reason for Visit * Reason Comments normocytic anemia lymphocytopenia Encounter Details Date Type Department Care Team (Late st Contact Info) Description 07/22/2025 1:30 PM CLASS B DRIVER Office Visit [facility] Oncology and Hematology - [place] [address] [place] [address] Monserrat Do MD [address] [place] [address] Normocytic anemia (Primary Dx); Lymphocytopenia Social History Tobacco Use Types Packs/Day Years Used Date Smoking Tobacco: Former Cigarettes 0.3 2 0 09/04/1956 - 09/04/1958 Smokeless Tobacco: Never Alcohol Use Standard Drinks/Week Comments Not Currently 0 (1 standard drink = 0.6 oz pur e alcohol) Comments Unknown Sex and Gender Information Value Date Recorded Sex Assigned at Female 05/11/2024 10:02 AM CDT Legal Sex Female 3:27 PM CDT Gender Identity Female 05/11/2024 10:02 AM CDT Sexual Orientation Bisexual 05/11/2024 10 :02 AM CDT documented as of this encounter Last Filed Vital Signs Vital Sign Reading Time Taken Comments Blood Pressure 166/70 07/22/2025 1:24 PM CLASS B DRIVER Pulse 65 07/22/2025 1:18 PM CLASS B DRIVER Temperature 37 C (98.6 F) 07/22/2025 1:18 PM CLASS B DRIVER Respiratory Rate 16 07/22/2025 1:18 PM CLASS B DRIVER Oxygen Saturation 90% 07/22/2025 1:18 PM CLASS B DRIVER Inhaled Oxygen Concentration - - Weight 75.5 kg (166 lb 6.4 oz) 07/22/2025 1:18 P M CLASS B DRIVER Height 157.5 cm (5' 2) 07/22/2025 1:18 PM CLASS B DRIVER Body Mass Index 30.43 07/22/2025 1:18 PM CLASS B DRIVER documented in this encounter Progress Notes * Monserrat Do MD - 07/22/2025 1:33 PM CST Hematology-oncology Consult Note Requesting Physician Meena Gastelum APRN Primary Care Physician Omega Parker, Problem list There is no problem list on file for this patient. Reason for Visit Melissa Arauz is a 85 y.o. female who was referred for consultation for anemia. History of present illness 85-year-old female who developed intermittent dyspnea and chest tightness for the past 4 months that resolved with rest. Lab reevaluation by her PCP revealed normocytic anemia, lymphocytopenia, and chronic kidney disease. The patient is referred to this office today, 07/22/2025, for further evaluation and treatment recommendations. Labs: (05/15/25): WBC 5.4, lymph 0.68 (L), Hgb 9.3 (L), Hct 30.1 (L), MCV 94.1, Plt 208, free testosterone0.6 (nl), total testosterone 7 (nl), BUN 46 (H), crea 1.49 (H), GFR 34 (L), LFTs nl. The patient is very active. She is having no fever and chills. No SOB, or CP, No abdominal discomfort, no change in BMs. No melena or hematochezia. No dysuria or hematuria. 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 She has a systemicform; it is now under control. She was for 62 years; she lost her in Sep, 2024. She plans to move to her daughter in [place] next summer. Past Medical History Past Medical History: Diagnosis Date Hyperlipidemia Surgical History Past Surgical History: Procedure Laterality Date HX HYSTERECTOMY HX KNEE REPLACEMENT 1999 Medications Current Outpatient Medications Medication Sig Dispense Refill hydroxychloroquine (PLAQUENIL,SOVUNA) 200 mg tablet Take 1 tablet by mouth once a day 30 Tablet 3 pravastatin (PRAVACHOL) 10 mg tablet Take 1 Tablet (10 mg) by mouth daily. 90 Tablet 1 triamcinolone acetonide (KENALOG) 0.1 % Cream Apply to affected areas two times daily and as needed. 454 Gram 3 famotidine (PEPCID) 20 mg tablet Take 1 Tablet (20 mg) by mouth daily. 90 Tablet 1 loteprednol etabonate (LOTEMAX) 0.5 % gel Instill 1 drop into both eyes twice a day 5 Gram 0 silver sulfADIAZINE (SSD) 1 % Cream Apply a small amount to affected area of legs twice a day 50 Gram 2 levothyroxine 112 mcg tablet Take 1 Tablet (112 mcg) by mouth daily. 90 Tablet 1 amLODIPine (NORVASC) 5 mg tablet Take 1 Tablet (5 mg) by mouth daily. 90 Tablet 1 montelukast (SINGULAIR) 10 mg tablet Take 1 Tablet (10 mg) by mouth daily. 90 Tablet 1 timolol hemihydrate (BETIMOL) 0.5% solution Administer 1 Drop to peripheral of leg ulcer area (0.5 - 1.0 cm) 2 times daily. 15 mL 6 [DISCONTINUED] silver sulfADIAZINE (SSD) 1 % Cream Apply a small amount to affected area twice a day. Apply to legs. 50 Gram 2 hydroCHLOROthiazide 25 mg tablet Take 1 Tablet (25 mg) by mouth daily. 90 Tablet 1 clonazePAM (KlonoPIN) 0.5 mg Tablet Take 1 Tablet (0.5 mg) by mouth daily. 90 Tablet 1 celecoxib (CeleBREX) 100 mg capsule Take one capsule (100 MG) orally twice a day 180 Capsule 1 [DISCONTINUED] triamcinolone acetonide (KENALOG) 0.1 % Cream Apply twice daily to affected areas onarms for no more than 3 weeks in a row. 80 Gram 2 [DISCONTINUED] triamcinolone acetonide (KENALOG) 0.1 % Cream Apply twice daily to affected areas onarms for no more than 3 weeks in a row. 80 Gram 2 fluticasone propionate (FLONASE) 50 mcg/spray [place], Suspension nasal inhaler SPRAY 2 SPRAYS IN EACH NOSTRIL ONCE DAILY 48 Gram 1 [DISCONTINUED] clonazePAM (KlonoPIN) 0.5 mg Tablet Take 1 Tablet (0.5 mg) by mouth daily. 90 Tablet1 clobetasoL (TEMOVATE) 0.05 % Ointment Apply to legs twice daily 60 Gram 3 flu vaccine trivalent (65 yr+)(PF)(FLUZONE HIGH DOSE) 180 mcg/0.5 mL IM syringe Inject 0.5 mL (180 mcg) by intramuscular injection. 0.5 mL 0 folic acid (FOLVITE) 1 mg tablet Take 1 Tablet (1 mg) by mouth daily. 30 Tablet 3 ruxolitinib (Opzelura) 1.5 % Cream Apply to arms and legs two times daily as needed. 60 Gram 6 [DISCONTINUED] clobetasoL (TEMOVATE) 0.05 % Ointment Apply to leg(s) two times daily for 14 days, then use as needed. 60 Gram 2 [DISCONTINUED] silver sulfADIAZINE (Silvadene) 1 % Cream Apply to open wounds on legs two times daily. 85 Gram 1 [DISCONTINUED] amLODIPine (NORVASC) 5 mg tablet Take 1 Tablet (5 mg) by mouth daily. 90 Tablet 1 [DISCONTINUED] hydroCHLOROthiazide 25 mg tablet TAKE ONE TABLET BY MOUTH ONCE DAILY 90 Tablet 1 [DISCONTINUED] levothyroxine 112 mcg tablet Take 1 Tablet (112 mcg) by mouth daily. 90 Tablet 1 [DISCONTINUED] montelukast (SINGULAIR) 10 mg tablet Take 1 Tablet (10 mg) by mouth daily. 90 Tablet1 [DISCONTINUED] mupirocin (BACTROBAN) 2 % Ointment Apply to open sores on lower legs 2 times daily. 22 Gram 1 [DISCONTINUED] clonazePAM (KlonoPIN) 0.5 mg Tablet Take 1 Tablet (0.5 mg) by mouth daily. 90 Tablet1 [DISCONTINUED] clobetasoL (TEMOVATE) 0.05 % Ointment Apply to affected areas twice daily until follow up in 3 weeks. 45 Gram 1 [DISCONTINUED] mupirocin (BACTROBAN) 2 % Ointment Apply twice daily to the affected areas on the legs until healed 22 Gram 1 [DISCONTINUED] clobetasoL (TEMOVATE) 0.05 % Ointment Apply to affected areas twice daily until follow up in 3 weeks 45 Gram 1 [DISCONTINUED] mupirocin (BACTROBAN) 2 % Ointment Apply twice daily to the affected areas on the legs until healed 22 Gram 1 [DISCONTINUED] mupirocin (BACTROBAN) 2 % Ointment Apply 2-3 times a day until symptoms resolved 44 Gram 0 [DISCONTINUED] triamcinolone acetonide (KENALOG) 0.1 % Cream Apply twice daily over affected areas on the arms for no more than 3 weeks in a row. 80 Gram 0 [DISCONTINUED] pravastatin (PRAVACHOL) 10 mg tablet Take 1 Tablet (10 mg) by mouth daily. 90 Tablet4 [DISCONTINUED] mupirocin (BACTROBAN) 2 % Ointment Apply topically 2-3 times a day until symptoms resolved as directed 22 Gram 0 [DISCONTINUED] levothyroxine 100 mcg tablet Take 1 tablet by mouth daily. 90 Tablet 4 No current facility-administered medications for this visit. Allergies Allergies Allergen Reactions Codeine Unknown Nitrofurantoin Monohyd/M-Cryst Unknown Immunizations: Immunization History Administered Date(s) Administered (COMRINATY)(12YR UP) COVID-19 VACCINE, MRNA (PF)30 MCG/0.3 ML, IM SYRINGE 08/01/2023, 07/16/2024, 07/18/2025 (PREVNAR 20)(6 WKS UP) PNEUMOCOCCAL CONJUGATE VACCINE 20-VALENT (PCV20), POLYSACCHARIDE [id number] CONJUGATE, ADJUVANT 0.5 ML (PF) IM 06/28/2023 INFLUENZA VACCINE HIGH DOSE QUADRIVALENT 65 YR UP PF IM 06/28/2023 INFLUENZA VACCINE HIGH DOSE TRIVALENT SPLIT VIRUS, (65 YR UP), 0.5ML (PF), IM 06/16/2024, 06/25/2025 Family History Family History Problem Relation Name Age of Onset Heart Disease Father Colon Cancer Father Heart Disease Mother No Known Problems Brother Heart Disease Brother Heart Disease Sister No Known Problems Sister No Known Problems Child No Known Problems Child Social History Social History Tobacco Use Smoking status: Former Current packs/day: 0.00 Average packs/day: 0.3 packs/day for 2.0 years (0.5 ttl pk-yrs) Types: Cigarettes Start date: 09/04/1956 Quit date: 09/04/1958 Years since quittin.9 Smokeless tobacco: Never Substance Use Topics Alcohol use: Not Currently Review of Systems Constitutional: Patient did not mention fever; no night sweats; no anorexia; no weight loss; no fatique NEENT: Patient did not mention headache; no change in vision; no change in hearing; no sore throat;no dysphagia Respiratory: Patient did not mention shortness of breath; no pleuritic chest pain; no cough; no hemoptysis Cardiac: Patient did not mention cardiac-like chest pain; no palpitations; no orthopnea; no PND; noDOE Breasts: Patient did not mention tenderness; no masses GI: Patient did not mention abdominal pain; no nausea; no vomiting; no diarrhea; no hematochezia; no melena : Patient did not mention dysuria; no frequency; no hesitancy; no hematuria PHOTOENGRAVING ETCHER: Musculosketetal: Patient did not mention bone pain; no arthralgia; no joint swelling; no myalgia; Skin: Patient did not mention petechiae; no ecchymoses. She has lichen planus. Endocrine: Patient did not mention polydipsia; no polyuria; no unusual weight gain Neuro: Patient did not mention headache; no change in vision; no sensory changes; no muscle weakness; no confusion; no seizures Psych: Patient did not mention anxiety; no depression; Physical Exam Vitals: As per nursing note Constitutional: Well developed, well nourished, no acute distress, non-toxic appearance. Patient does not look her stated age Teeth and gum. No signs of infection or swelling. Eyes: PERRL, conjunctiva normal HEENT: Atraumatic, external ears normal, nose normal, oropharynx moist, no pharyngeal exudates. no sinus tenderness Neck- normal range of motion, no tenderness, supple Respiratory: No respiratory distress, normal breath sounds, no rales, no wheezing Breasts: Symmetric, No masses, No nipple discharge. Cardiovascular: Normal rate, normal rhythm, no murmurs, no gallops, no rubs GI: Soft, nondistended, normal bowel sounds, nontender, no splenomegaly, no hepatomegaly, no mass, no rebound, no guarding : No costovertebral angle tenderness Musculoskeletal: No edema, no tenderness, no deformities. Back- no tenderness Integument: Well hydrated, no rash, Digits and nails inspection normal Lymphatic: No lymphadenopathy noted in cervical, supraclavicular or axillary areas Neurologic: Alert & oriented x 3, CN 2-12 normal, normal motor function, normal sensory function, no focal deficits noted Psychiatric: Speech and behavior appropriate ? labs No results found for this or any previous visit (from the past 24 hours). Pathology ? Imaging & Other Studies Performance Status ECOG 0 TOBACCO COUNSELING She is not a tobacco/nicotine user.? Assessment / Plan: Normocytic anemia DD: Nutrient deficiency, such as simultaneous deficiency of B12 and iron, anemia of chronic disease/anemia of inflammation, anemia of chronic kidney disease, anemia of heart failure, anemia with endocrine deficiencies, monoclonal gammopathy, MDS, etc. Of note, patient takes Plaquenil which can also lead to anemia. Lymphocytopenia DD: Infection, systemic diseases such as autoimmune disorders, malignancies, lymphoma, kidney failure, etc. CKD with GFR 34 --> stage G3b. Lichen planus - On plaquenil. Orders: Draw labs today: CBC, CMP, Iron studies, Vitamin B12, folate, retic, TSH, KWAKU, SPEP, erythropoetin. F/U in 4-6 weeks The patient and I discussed the differential diagnosis of normocytic anemia and lymphocytopenia. Will draw labs. Should no etiology be found, I would suspect that the anemia is multifactorial, secondary to Plaquenil as well as her chronic kidney disease. Her lymphocytopenia may be secondary to Plaquenil. And lymphocytopenia are secondary to Plaquenil. The patient voiced understanding. All questions were answered to her satisfaction. Monserrat Do MD ,07/22/2025 1:33 PM ? Total time spent 40 minutes, two third of the total time spent counseling patient [id number]. CC:? S B DRIVER documented in this encounter Plan of Treatment Upcoming Encounters Date Type Department Care Team (Late st Contact Info) Description 08/19/2025 4:30 PM CLASS B DRIVER Telephone Check Up [facility] Oncology and Hematology - [place] [address] [place] [address] Zeke Alvarez MD [address] [facility] [address] [place] [address] Scheduled Orders Name Type Priority Associated Diagnoses Orde r Schedule CBC WITH DIFFERENTIAL Lab Stat Normocytic anemia Expected: 07/22/2025, Expires: 07/22/2026 COMPREHENSIVE METABOLIC PANEL Lab Stat Normocytic anemia Expected: 07/22/2025, Expires: 07/22/2026 IRON, TIBC, AND PERCENT SATURATION Lab Routine Normocytic anemia Ordered: 07/22/2025 FERRITIN Lab Routine Normocytic anemia Ordered: 07/22/2025 VITAMIN B12 AND FOLATE Lab Routine Normocytic anemia Lymphocytopenia Ordered: 07/22/2025 RETICULOCYTES Lab Routine Normocytic anemia Ordered: 07/22/2025 TSH Lab Routine Normocytic anemia Ordered: 07/22/2025 KWAKU SCREEN W/REFLEX Lab Routine Normocytic anemia Lymphocytopenia Expected: 07/22/2025, Expires: 07/22/2026 PROTEIN ELECTROPHORESIS W/REFLEX,24HR URINE Lab Routine Normocytic anemia Ordered: 07/22/2025 ERYTHROPOIETIN LEVEL Lab Routine Normocytic anemia Expected: 07/22/2025, Expires: 07/22/2026 documented as of this encounter Visit Diagnoses Diagnosis Normocytic anemia- Primary Anemia, unspecified Lymphocytopenia documented in this encounter Care Teams Rehab Director Occupational Therapist Relationship Specialty Start Date End Date Omega Parker DO [address] [address] PCP - General Internal Medicine 06/04/25 documented as of this encounter
[2025-07-22 14:35] LABS: Hematocrit 32.8 % (37.0-47.0); Hemoglobin 10.1 g/dL (12.0-15.0); Immature Granulocyte Percent A 0.4 % (0-0.5); Immature Reticulocyte Fraction 10.6 % (3.0-15.9); Lymphocytes Absolute Auto 0.79 K/mm3 (0.9-3.2); Mean Corpuscular HGB Conc 30.8 g/dl (32-36); Mean Corpuscular Hemoglobin 28.7 pg (26-34); Mean Corpuscular Volume 93.2 fl (80-100); Nucleated Red Blood Cells Absolute Auto 0.000 K/mm3 (0.0-0.012); Nucleated Red Blood Cells Perc 0.0 % (0.0-0.2); Platelet Count Result 179 k/mm3 (150-375); Red Blood Count 3.52 M/mm3 (4.2-5.4); Reticulocyte Hemoglobin Conten 31.0 pg (28.2-36.6); Reticulocytes Absolute 0.04 10^6/uL (0.02-0.10); White Blood Count 5.3 K/mm3 (4.5-10.0)
[2025-07-22 16:16] LABS: Alanine Aminotransferase 18 U/L (6-35); Albumin Level 4.3 g/dL (3.5-5.1); Alkaline Phosphatase 94 U/L (38-126); Anion Gap 7 mmol/L (4-12); Aspartate Amino Transferase 27 U/L (14-36); Bilirubin,Total 0.4 mg/dL (0.2-1.3); Blood Urea Nitrogen 43 mg/dL (7-17); Calcium 9.0 mg/dL (8.4-10.2); Carbon Dioxide 30 mmol/L (22-30); Chloride 102 mmol/L (98-107); Estimated Glomerular Filt Rate 34; Glucose 89 mg/dL (65-110); Potassium 4.0 mmol/L (3.4-5.0); Sodium 139 mmol/L (137-145); Total Protein 7.6 g/dL (6.3-8.2)
[2025-07-22 16:23] LABS: Iron 74 ug/dL (37-170)
[2025-07-22 16:49] LABS: Percent Iron Saturation 21 % (20-50)
[2025-07-22 16:52] LABS: Thyroid Stimulating Hormone 2.800 uIU/mL (0.465-4.680)
[2025-07-22 17:08] LABS: Ferritin 36.70 ng/mL (11.1-264)
[2025-07-22 17:28] LABS: Vitamin B12 379.0 pg/mL (239-931)
--- OUTSIDE RECORDS SUMMARY | 2025-07-23 01:01 | XMS_ITS | Encounter Summary ---
Author Organization [facility] Address [address] [place] [address] Care Team Providers Care Territory Sales Executive Name Role Phone Omega Parker DO Primary Care Provider Encounter Details Date Type Department Care Team (Late st Contact Info) Description 07/22/2025 Orders Only [facility] Oncology and Hematology - [place] [address] [place] [address] Monserrat Chowdhury MD [address] [place] [address] Normocytic anemia (Primary Dx) Social History Tobacco Use Types Packs/Day Years [...] AM CDT documented as of this encounter Plan of Treatment Upcoming Encounters Date Type Department Care Team (Late st Contact Info) Description 08/19/2025 4:30 PM SALES REPRESENTATIVE CONSULTANT Telephone Check Up [facility] Oncology and Hematology - [place] [address] [place] [address] Zeke Alvarez MD [address] [facility] [address] [place] [address] Scheduled Orders Name Type Priority Associated Diagnoses Orde r Schedule PROTEIN ELECTROPHORESIS W/REFLEX,SERUM Lab Routine Normocytic anemia Expected: 07/22/2025, Expires: 07/22/2026 documented as of this encounter Visit Diagnoses Diagnosis Normocytic anemia- Primary Anemia, unspecified documented in this encounter Care Teams Territory Sales Executive Relationship Specialty Start Date End Date Omega Parker DO [address] [facility] [address] [place] [address] PCP - General Internal Medicine 06/04/25 documented as of this encounter
--- OUTSIDE RECORDS SUMMARY | 2025-07-23 01:02 | XMS_ITS | Clinical Summary ---
Author Organization [facility] Deepak Merrill Address [address] [place] [address] Care Team Providers Care Service Observer Name Role Phone Omega Parker DO Primary Care Provider Allergies Active Allergy Reactions Criticality Noted Date Comments Codeine Unknown 04/12/2023 Nitrofurantoin Monohyd/M-Cryst Unknown 04/12 Medications ruxolitinib (Opzelura) 1.5 % Cream Apply to arms and legs two times daily as needed. 60 Gram 6 04/18/2024 6:10 PM CDT 4 Active folic acid (FOLVITE) 1 mg tablet Take 1 Tablet (1 mg) by mouth daily. 30 Tablet 3 06/30/2024 12:59 PM CDT 4 Active clobetasoL (TEMOVATE) 0.05 % Ointment Apply to legs twice daily 60 Gram 3 06/30/2024 12:59 PM CDT 4 Active fluticasone propionate (FLONASE) 50 mcg/spray [place], Suspension nasal inhaler SPRAY 2 SPRAYS IN EACH NOSTRIL ONCE DAILY 48 Gram 1 07/16/2024 12:57 PM WOUND CARE COORDINATOR 4 Active celecoxib (CeleBREX) 100 mg capsule Take one capsule (100 MG) orally twice a day 180 Capsule 1 06/10/2025 7:48 PM CDT 5 Active clonazePAM (KlonoPIN) 0.5 mg Tablet Take 1 Tablet (0.5 mg) by mouth daily. 90 Tablet 1 05/16/2025 10:21 AM CDT 5 Active hydroCHLOROthiaz kasia 25 mg tablet Take 1 Tablet (25 mg) by mouth daily. 90 Tablet 1 05/16/2025 10:21 AM CDT 5 Active timolol hemihydrate (BETIMOL) 0.5% solution Administer 1 Drop to peripheral of leg ulcer area (0.5 - 1.0 cm) 2 times daily. 15 mL 6 05/26/2025 2:32 PM CDT 5 Active montelukast (SINGULAIR) 10 mg tablet Take 1 Tablet (10 mg) by mouth daily. 90 Tablet 1 05/26/2025 2:32 PM CDT 5 Active levothyroxine 112 mcg tablet Take 1 Tablet (112 mcg) by mouth daily. 90 Tablet 1 07/18/2025 5:22 PM WOUND CARE COORDINATOR 5 Active amLODIPine (NORVASC) 5 mg tablet Take 1 Tablet (5 mg) by mouth daily. 90 Tablet 1 07/18/2025 5:22 PM WOUND CARE COORDINATOR 5 Active silver sulfADIAZINE (SSD) 1 % Cream Apply a small amount to affected area of legs twice a day 50 Gram 2 06/10/2025 7:48 PM CDT 5 Active loteprednol etabonate (LOTEMAX) 0.5 % gel Instill 1 drop into both eyes twice a day 5 Gram 05/16/2025 10:21 AM CDT 5 Active famotidine (PEPCID) 20 mg tablet Take 1 Tablet (20 mg) by mouth daily. 90 Tablet 1 06/30/2025 2:08 PM CDT 5 Active triamcinolone acetonide (KENALOG) 0.1 % Cream Apply to affected areas two times daily and as needed. 454 Gram 3 06/30/2025 2:08 PM CDT 5 Active pravastatin (PRAVACHOL) 10 mg tablet Take 1 Tablet (10 mg) by mouth daily. 90 Tablet 1 07/18/2025 5:22 PM WOUND CARE COORDINATOR 5 Active hydroxychloroqui ne (PLAQUENIL,SOVUN A) 200 mg tablet Take 1 tablet by mouth once a day 30 Tablet 3 07/18/2025 5:22 PM WOUND CARE COORDINATOR 5 Active levothyroxine 100 mcg tablet Take 1 tablet by mouth daily. 90 Tablet 4 04/24/2022 2:14 PM CDT 2 025 Discontin ued(Dupli alexandru Therapy) mupirocin (BACTROBAN) 2 % Ointment Apply topically 2-3 times a day until symptoms resolved as directed 22 Gram 05/05/2022 5:31 PM CDT 2 025 Discontin ued(Dupli alexandru Therapy) pravastatin (PRAVACHOL) 10 mg tablet Take 1 Tablet (10 mg) by mouth daily. 90 Tablet 4 04/24/2023 5:43 PM CDT 2 025 Discontin ued(Dupli alexandru Therapy) triamcinolone acetonide (KENALOG) 0.1 % Cream Apply twice daily over affected areas on the arms for no more than 3 weeks in a row. 80 Gram 11/01/2022 6:35 PM WOUND CARE COORDINATOR 3 025 Discontin ued(Dupli alexandru Therapy) mupirocin (BACTROBAN) 2 % Ointment Apply 2-3 times a day until symptoms resolved 44 Gram 11/11/2022 5:48 PM WOUND CARE COORDINATOR 3 025 Discontin ued(Dupli alexandru Therapy) clobetasoL (TEMOVATE) 0.05 % Ointment Apply to affected areas twice daily until follow up in 3 weeks 45 Gram 1 01/17/2023 6:40 PM CDT 3 025 Discontin ued(Dupli alexandru Therapy) mupirocin (BACTROBAN) 2 % Ointment Apply twice daily to the affected areas on the legs until healed 22 Gram 1 08/01/2023 3:56 PM WOUND CARE COORDINATOR 3 025 Discontin ued(Dupli alexandru Therapy) clobetasoL (TEMOVATE) 0.05 % Ointment Apply to affected areas twice daily until follow up in 3 weeks. 45 Gram 1 05/27/2023 8:37 AM CDT 3 025 Discontin ued(Dupli alexandru Therapy) mupirocin (BACTROBAN) 2 % Ointment Apply twice daily to the affected areas on the legs until healed 22 Gram 1 10/04/2023 12:03 PM WOUND CARE COORDINATOR 3 025 Discontin ued(Dupli alexandru Therapy) clonazePAM (KlonoPIN) 0.5 mg Tablet Take 1 Tablet (0.5 mg) by mouth daily. 90 Tablet 1 07/24/2023 4:32 PM WOUND CARE COORDINATOR 3 025 Discontin ued(Dupli alexandru Therapy) mupirocin (BACTROBAN) 2 % Ointment Apply to open sores on lower legs 2 times daily. 22 Gram 1 06/30/2024 12:59 PM CDT 3 025 Discontin ued(Dupli alexandru Therapy) amLODIPine (NORVASC) 5 mg tablet Take 1 Tablet (5 mg) by mouth daily. 90 Tablet 1 01/15/2024 6:47 PM CDT 4 025 Discontin ued(Dupli alexandru Therapy) hydroCHLOROthiaz kasia 25 mg tablet TAKE ONE TABLET BY MOUTH ONCE DAILY 90 Tablet 1 01/15/2024 6:47 PM CDT 4 025 Discontin ued(Dupli alexandru Therapy) levothyroxine 112 mcg tablet Take 1 Tablet (112 mcg) by mouth daily. 90 Tablet 1 01/15/2024 6:47 PM CDT 4 025 Discontin ued(Dupli alexandru Therapy) montelukast (SINGULAIR) 10 mg tablet Take 1 Tablet (10 mg) by mouth daily. 90 Tablet 1 01/15/2024 6:47 PM CDT 4 025 Discontin ued(Dupli alexandru Therapy) clobetasoL (TEMOVATE) 0.05 % Ointment Apply to leg(s) two times daily for 14 days, then use as needed. 60 Gram 2 11/20/2023 5:48 PM CDT 4 025 Discontin ued(Dupli alexandru Therapy) silver sulfADIAZINE (Silvadene) 1 % Cream Apply to open wounds on legs two times daily. 85 Gram 1 06/30/2024 12:59 PM CDT 4 025 Discontin ued(Dupli alexandru Therapy) clonazePAM (KlonoPIN) 0.5 mg Tablet Take 1 Tablet (0.5 mg) by mouth daily. 90 Tablet 1 09/30/2024 12:58 PM WOUND CARE COORDINATOR 4 025 Discontin ued(Dupli alexandru Therapy) triamcinolone acetonide (KENALOG) 0.1 % Cream Apply twice daily to affected areas on arms for no more than 3 weeks in a row. 80 Gram 2 05/22/2025 10:44 AM CDT 5 025 Discontin ued(Dupli alexandru Therapy) triamcinolone acetonide (KENALOG) 0.1 % Cream Apply twice daily to affected areas on arms for no more than 3 weeks in a row. 80 Gram 2 03/26/2025 5:28 PM CDT 5 025 Discontin ued(Dupli alexandru Therapy) hydroxychloroqui ne (PLAQUENIL,SOVUN A) 200 mg tablet Take 1 tablet by mouth once a day 30 Tablet 6 06/25/2025 5:48 PM CDT 5 025 Discontin ued(Reord er) pravastatin (PRAVACHOL) 10 mg tablet Take 1 Tablet (10 mg) by mouth daily. 90 Tablet 1 04/22/2025 10:59 AM CDT 5 025 Discontin ued(Reord er) silver sulfADIAZINE (SSD) 1 % Cream Apply a small amount to affected area twice a day. Apply to legs. 50 Gram 2 07/18/2025 5:22 PM WOUND CARE COORDINATOR 5 025 Discontin ued(Dupli alexandru Therapy) Active Problems No known active problems Encounters Date Type Department Care Team Description 07/22/2025 1:30 PM WOUND CARE COORDINATOR Office Visit [facility] Oncology and Hematology [facility] [address] [place] [phone] Monserrat Chowdhury MD Normocytic anemia (Primary Dx); Lymphocytopenia 07/22/2025 Orders Only [facility] Oncology and Hematology - [place] [address] [place] [phone] Monserrat Chowdhury MD Normocytic anemia (Primary Dx) 07/02/2025 External Device Data STL ABSTRACTION Provider, Abstract 07/02/2025 External Device Data STL ABSTRACTION Provider, Abstract 06/25/2025 External Device Data STL ABSTRACTION Provider, Abstract 06/10/2025 External Device Data STL ABSTRACTION Provider, Abstract 06/10/2025 External Device Data STL ABSTRACTION Provider, Abstract from Last 3 Months Immunizations Immunization Administration Dates Next Due (COMRINATY)(12YR UP) COVID-1 9 VACCINE, MRNA (PF)30 MCG/0.3 ML, IM SYRINGE 07/18/2025,07/16/2024,08/01/2023 (PREVNAR 20)(6 WKS UP) PNEUM OCOCCAL CONJUGATE VACCINE 20-VALENT (PCV20), POLYSACCHARIDE [id number] CONJUGATE, ADJUVANT 0.5 ML (PF) IM 06/28/2023 INFLUENZA VACCINE HIGH DOSE QUADRIVALENT 65 YR UP PF IM 06/28/2023 INFLUENZA VACCINE HIGH DOSE TRIVALENT SPLIT VIRUS, (65 YR UP), 0.5ML (PF), IM 06/25/2025,06/16/2024 Family History Medical History Relation Name Comments No Known Problems Brother 1 Heart Disease Brother 2 No Known Problems Child 1 No Known Problems Child 2 Colon Cancer Father Heart Disease Father Heart Disease Mother Heart Disease Sister 1 No Known Problems Sister 2 Relation Name Status Comments Brother 1 Brother 2 Alive Child 1 Alive Child 2 Alive Father Mother Sister 1 Alive Sister 2 Alive Social History Tobacco Use Types Packs/Day Years [...] Orientation Bisexual 05/11/2024 10 :02 AM CDT Last Filed Vital Signs Vital Sign Reading Time Taken Comments Blood Pressure 166/70 07/22/2025 1:24 PM WOUND CARE COORDINATOR Pulse 65 07/22/2025 1:18 PM WOUND CARE COORDINATOR Temperature 37 C (98.6 F) 07/22/2025 1:18 PM WOUND CARE COORDINATOR Respiratory Rate 16 07/22/2025 1:18 PM WOUND CARE COORDINATOR Oxygen Saturation 90% 07/22/2025 1:18 PM WOUND CARE COORDINATOR Inhaled Oxygen Concentration - - Weight 75.5 kg (166 lb 6.4 oz) 07/22/2025 1:18 P M WOUND CARE COORDINATOR Height 157.5 cm (5' 2) 07/22/2025 1:18 PM WOUND CARE COORDINATOR Body Mass Index 30.43 07/22/2025 1:18 PM WOUND CARE COORDINATOR Plan of Treatment Upcoming Encounters Date Type Department Care Team (Late st Contact Info) Description 08/19/2025 4:30 PM WOUND CARE COORDINATOR Telephone Check Up [facility] Oncology and Hematology [facility] [address] [facility] [facility] [address] [place] [address] Zeke Alvarez MD [address] [facility] [place] [address] Health Maintenance Due Date Last Done Comments DTAP/TDAP/TD VACCINES (1 - Tdap) 1959 ZOSTER VACCINE (1 of 2) 1959 OSTEOPOROSIS SCREENING 2005 RSV VACCINE (60+ or ) (1 - 1-dose 75+ series) 2015 [place] ([place] Prev entative Visit/Annual Wellness Visit 09/04/2024 COVID-19 Vaccine (4 - Pfizer risk 2023- season) 2026 07/18/2025, 07/16/2024, 08/01/2023 PNEUMOCOCCAL VACCINE 50+ YEARS Completed 06/28/2023 INFLUENZA VACCINE Completed 06/25/2025, , 06/28/2023 Insurance RX AETNA Medicare Part D RX [employer] (INTERNAL) [facility] AETNA PPO [facility] Care Teams Service Observer Relationship Specialty Start Date End Date Omega Parker DO [address] [phone] PCP - General Internal Medicine 06/04/25
--- OUTSIDE RECORDS SUMMARY | 2025-07-23 01:02 | XMS_ITS | Clinical Summary ---
Author Organization [facility] Address [address] [place] [address] Care Team Providers Care Cipher Expert Name Role Phone Gokul Albarran MD Primary Care Provider [phone] Source Comments [facility],non-[facility] Affiliates and Associated Physician Practices is amultiple site organization consisting of ambulatory clinics and hospital sitesin [place], [place], [place] and [place]. This disclosure is being madepursuant to the Care Everywhere program and may not contain all information available regarding this patient. 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
--- OUTSIDE RECORDS SUMMARY | 2025-07-23 01:03 | XMS_ITS | Encounter Summary ---
Author Organization [facility] Address [facility] [place] [address] Care Team Providers Care Paster Operator Name Role Phone Gokul Albarran MD Primary Care Provider Encounter Details Date Type Department Care Team (Late st Contact Info) Description 03/19/2021 Lab Requisition [facility] 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 Received: 03/19/2021 05:39 AM Pathologist: [...] History A: SCCA vs other. Path # [id number]. B: SCCA vs other. Path # [id number]. 4:32 PM CDT DERMATOPATHOLOGY LABORATORY Gross Description Specimen A: Received is one formalin filled container labeled with the patient's name and designated right ant lower leg. The specimen consists of a shave biopsy measuring [id number]. Jar 0. Specimen B: Received is one formalin filled container labeled with the patient's name and designated left post lower leg. The specimen consists of a shave biopsy measuring [id number]. Jar 0. 4:32 PM CDT DERMATOPATHOLOGY LABORATORY [...] determined by the Dermatopathology Laboratory at [facility], directed by Dr. Dylan Castle. These tests need not be, and therefore are not, approved by the [place] Food and Drug Administration. The tests are used for clinical purposes. Billing Codes Specimen Charges Stain Charges 51862 07842 1 1 1 4:32 PM CDT DERMATOPATHOLOGY LABORATORY Embedded Images 1 4:32 PM CDT DERMATOPATHOLOGY LABORATORY Pathology/Cytology TISSUE SPECIMEN FROM SKIN / Unknown 03/17/2021 3:33 AM CDT 03/19/2021 5:39 AM CDT Miscellaneous samples (specimen) TISSUE SPECIMEN FROM SKIN / Unknown 03/17/2021 3:33 AM CDT 03/19/2021 5:39 AM CDT us Jose William MD LAB - PATHOLOGY/CYTOLOGY ORDER JEREMÍAS Final Result DERMATOPATHOLOGY LABORATORY [facility] - Department of Dermatology [facility] Medicine [address] [place] [address], [address] [phone] documented in this encounter Visit Diagnoses Not on filedocumented in this encounter Care Teams Paster Operator Relationship Specialty Start Date End Date Gokul Albarran MD [address] [place] [address] PCP - General 12/15/20 documented as of this encounter
--- OUTSIDE RECORDS SUMMARY | 2025-07-23 01:03 | XMS_ITS | Encounter Summary ---
Author Organization [facility] Address [facility] [place] [address] Care Team Providers Care Pole Inspector Name Role Phone Gokul Albarran MD Primary Care Provider Encounter Details Date Type Department Care Team (Late st Contact Info) Description 04/24/2021 Lab Requisition [facility] DermPath Lab [address] [facility], [place] [address] Jose William MD [address] [place] [address] Social History Tobacco Use Types Packs/Day Years Used Date Smoking Tobacco: Never Assessed Comments Unknown Sex and Gender Information Value Date Recorded Sex Assigned at Female 05/28/2021 5:56 PM CDT 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 Gender Identity Female 05/28/2021 5:56 PM CDT Sexual Orientation Straight 05/28/2021 5: 56 PM CDT documented as of this encounter Plan of Treatment Not on file documented as of this encounter Procedures Procedure Name Priority Date/Time Associated Diagnosis Comments DERMATOPATHOLOGY Routine 04/22/2021 3:33 AM CDT documented in this encounter Results * DERMATOPATHOLOGY (04/22/2021 3:33 AM CDT) Case Report Dermatopathology Report Case: [id number] Authorizing Provider: Jose William MD Collected: 04/22/2021 03:33 AM Ordering Location: [facility] DermPath Lab Received: 04/24/2021 02:45 PM Pathologist: Hawa Ayala MD Specimen: Skin, right back 2:46 PM CDT DERMATOPATHOLOGY LABORATORY Final Diagnosis Specimen A. SKIN, right back: SPONGIOTIC DERMATITIS WITH EOSINOPHILS (L30.8) (see microscopic description and comment) 2:46 PM CDT DERMATOPATHOLOGY LABORATORY at 1446 CDT Clinical History ACD vs drug eruption vs BP. Path # [id number]. 2:46 PM CDT DERMATOPATHOLOGY LABORATORY Gross Description Specimen A: Received is one formalin filled container labeled with the patient's name and designated right back. The specimen consists of a shave biopsy measuring [id number]. Jar 0. 2:46 PM CDT DERMATOPATHOLOGY LABORATORY [...] characteristic determined by the Dermatopathology Laboratory at [facility], directed by Dr. Dylan Castle. These tests need not be, and therefore are not, approved by the [place] Food and Drug Administration. The tests are used for clinical purposes. Billing Codes Specimen Charges Stain Charges 02826 1 93684 1 1 2:46 PM CDT DERMATOPATHOLOGY LABORATORY Embedded Images 2:46 PM CDT DERMATOPATHOLOGY LABORATORY Pathology/Cytolo gy TISSUE SPECIMEN FROM SKIN / Unknown 04/22/2021 3:33 AM CDT 04/24/2021 2:45 PM CDT Jose William MD LAB - PATHOLOGY/CYTOLOGY ORDER JEREMÍAS Final Result DERMATOPATHOLOGY LABORATORY [facility] - Department of Dermatology [facility] Specialized Medicine [address] [place] [address], [address] [phone] documented in this encounter Visit Diagnoses Not on filedocumented in this encounter Care Teams Pole Inspector Relationship Specialty Start Date End Date Gokul Albarran MD [address] [place] [address] PCP - General 12/15/20 documented as of this encounter
--- OUTSIDE RECORDS SUMMARY | 2025-07-23 01:03 | XMS_ITS | Encounter Summary ---
Author Organization [facility] Address [facility] [facility] [place] [address] Care Team Providers Care Sap Bobj Developer Name Role Phone Gokul Albarran MD Primary Care Provider Encounter Details Date Type Department Care Team (Late st Contact Info) Description 03/21/2024 Lab Requisition [facility]erm[facility] Lab [address] [facility] 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 Gender Identity Female 05/28/2021 5:56 PM CDT Sexual Orientation Straight 05/28/2021 5: 56 PM CDT documented as of this encounter Plan of Treatment Not on file documented as of this encounter Procedures Procedure Name Priority Date/Time Associated Diagnosis Comments DERMATOPATHOLOGY Routine 03/21/2024 2:52 PM CDT documented in this encounter Results * DERMATOPATHOLOGY (03/21/2024 2:52 PM CDT) Case Report Dermatopathology Report Case: [id number] Authorizing Provider: Landy Najera DO Collected: 03/21/2024 02:52 PM Ordering Location: [facility] - Received: 03/25/2024 07:38 AM [...] characteristic determined by the Dermatopathology Laboratory at [facility], directed by Dr. Dylan Castle. These tests need not be, and therefore are not, approved by the [place] Food and Drug Administration. The tests are used for clinical purposes. Billing Codes Specimen Charges Stain Charges 17131 47459 1 1 [id number] 1 4 3:12 PM CDT DERMATOPATHOLOGY LABORATORY Embedded Images 4 3:12 PM CDT DERMATOPATHOLOGY LABORATORY Pathology/Cytology TISSUE SPECIMEN FROM SKIN / Unknown 03/21/2024 2:52 PM CDT 03/25/2024 7:38 AM CDT Miscellaneous samples (specimen) TISSUE SPECIMEN FROM SKIN / Unknown 03/21/2024 2:52 PM CDT 03/25/2024 7:38 AM CDT Landy Najera DO LAB - PATHOLOGY/CYTOLOGY ORDERABLES Final Result DERMATOPATHOLOGY LABORATORY [facility] - Department of Dermatology [facility] Medicine [address] [place] [address], [address] [place] [address], [facility] [phone] documented in this encounter Visit Diagnoses Not on filedocumented in this encounter Care Teams Sap Bobj Developer Relationship Specialty Start Date End Date Gokul Albarran MD [address] [place] [address] PCP - General 12/15/20 documented as of this encounter
--- OUTSIDE RECORDS SUMMARY | 2025-07-23 01:04 | XMS_ITS | Encounter Summary ---
Author Organization [facility] Address [facility] [facility] [place] [address] Care Team Providers Care Ski Topper Name Role Phone Gokul Albarran MD Primary Care Provider Encounter Details Date Type Department Care Team (Late st Contact Info) Description 12/16/2020 Lab Requisition [facility] DermPath Lab [address] [place] [address] Jose William MD [address] [facility] [place] [address] Social History Tobacco Use Types Packs/Day Years Used Date Smoking Tobacco: Never Assessed Comments Unknown Sex and Gender Information Value Date Recorded Sex Assigned at Female 05/28/2021 5:56 PM CDT Legal Sex 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 Gender Identity Female 05/28/2021 5:56 PM CDT Sexual Orientation Straight 05/28/2021 5: 56 PM CDT documented as of this encounter Plan of Treatment Not on file documented as of this encounter Procedures Procedure Name Priority Date/Time Associated Diagnosis Comments DERMATOPATHOLOGY Routine 12/14/2020 3:33 AM CDT documented in this encounter Results * DERMATOPATHOLOGY (12/14/2020 3:33 AM CDT) Case Report Dermatopathology Report Case: [id number] Authorizing Provider: Jose William MD Collected: 12/14/2020 03:33 AM Ordering Location: [facility] DermPath Lab Received: 12/16/2020 06:43 AM Pathologist: Koby Castle MD Specimen: Skin, right lower leg 2:17 PM CDT DERMATOPATHOLOGY LABORATORY Final Diagnosis Specimen A. 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 Path # [id number]. 2:17 PM CDT DERMATOPATHOLOGY LABORATORY Gross Description Specimen A: Received is one formalin filled container labeled with the patient's name and designated right lower leg. The specimen consists of a shave biopsy measuring [id number]. Jar 0. 2:17 PM CDT DERMATOPATHOLOGY LABORATORY [...] characteristic determined by the Dermatopathology Laboratory at [facility], directed by Dr. Dylan Castle. These tests need not be, and therefore are not, approved by the [place] Food and Drug Administration. The tests are used for clinical purposes. Billing Codes Specimen Charges Stain Charges 98978 1 1 2:17 PM CDT DERMATOPATHOLOGY LABORATORY Embedded Images 2:17 PM CDT DERMATOPATHOLOGY LABORATORY Pathology/Cytolo gy TISSUE SPECIMEN FROM SKIN / Unknown 12/14/2020 3:33 AM CDT 12/16/2020 6:43 AM CDT us Jose William MD LAB - PATHOLOGY/CYTOLOGY ORDER JEREMÍAS Final Result DERMATOPATHOLOGY LABORATORY [facility] Department of Dermatology [facility] Specialized Medicine [address] [phone] documented in this encounter Visit Diagnoses Not on filedocumented in this encounter Care Teams Ski Topper Relationship Specialty Start Date End Date Gokul Albarran MD [address] [place] [id number] PCP - General 12/15/20 documented as of this encounter
[2025-07-23 15:09] LABS: Albumin 3.7 g/dL (2.9-4.4); Alpha-1-Globulin 0.3 g/dL (0.0-0.4); Alpha-2-Globulin 0.8 g/dL (0.4-1.0); Gamma Globulin 1.0 g/dL (0.4-1.8)
[2025-07-24 14:09] LABS: ANA by IFA Rfx Titer/Pattern Negative (.)
== END 2025-07-22 14:19 | disposition home or self-care (01) ==
PROVIDERS: PCP Internal Medicine; Visit Provider Internal Medicine Hematology & Oncology
DX: D64.9 Anemia, unspecified (principal); D72.810 Lymphocytopenia
CPT/HCPCS: 36415; 80053; 82607; 82668; 82728; 82746; 83540; 83550; 84155; 84165; 84443; 85025; 85046; 86038

== ENCOUNTER 2025-09-02 12:25 | Emergency (ER) | payer MEDICARE, SELFPAY ==
--- NOTE | ~2025-09-02 | XR_ITS ---
Examination: XR knee LT min 4V Clinical History: injury Comparison: None Technique: 4 views left knee Findings/impression: 1. Small joint effusion. 2. No fracture or dislocation. 3. Moderate medial compartment joint space narrowing. 4. Chondrocalcinosis. 5. Mild marginal osteophytes. Reviewed, dictated and finalized at location R. DIPPER
[2025-09-02 12:40] VITALS: BP 142/64; PULSE 70; RESP 16; TEMP 36.8; O2SAT 100
--- NOTE | 2025-09-02 13:37 | ED_ITS ---
HPI - Extremity Injury (Lower) General Chief Complaint: Extremity Injury, Lower Stated Complaint: L Knee Pain Time Seen by Provider: 09/02/25 13:05 Source: patient and RN notes reviewed Mode of arrival: ambulatory Limitations: no limitations History of Present Illness HPI Narrative: 85-year-old female Presents Express Care complaining left knee pain for 2 months. Patient denies any falls or injuries. Patient reports the pain is worse with ambulation through left knee. Patient reports some swelling to her left knee the last few days. Patient has tried a knee brace without relief. Patient denies any numbness, tingling or any other injuries. Patient history of a knee replacement to the right knee. Related Data Home Medications ?Medication ?Instructions ?Recorded ?Confirmed ?Last Taken ?Type cholecalciferol (vitamin D3) PO 01/25/21 07/24/25 Unkn own History guaifenesin [Mucinex] PO 01/25/21 07/24/25 Unknown History biotin 1 mg capsule 1 mg PO DAILY 01/15/2507/24 Unknown History hydroxychloroquine 200 mg tablet 200 mg PO DAILY 01/1507/24/25 Unknown History (Plaquenil) lactobacillus combination no.9 4 4,000 mmu cells PO DA JOAQUINA 01/15/25 07/24/25 Unknown History billion cell capsule (Adult 50 Plus Probiotic) fexofenadine 60 mg tablet (Kassi 60 mg PO Q12H 01/2807/24/25 Unknown History Allergy) Allergies Allergy/AdvReac Type Severity Reaction Status Date / Time codeine AdvReac Intermediate Makes her Verified 09/02/25 12:46 whoozie and off balance nitrofurantoin AdvReac Intermediate GI upset Verified 09/02/25 12:46 Review of Systems Review of Systems: CONSTITUTIONAL: Denies fever, chills, or sweats. EYES: Denies visual changes, redness, or discharge. ENT: Denies rhinorrhea, congestion, sore throat, or otalgia. CARDIOVASCULAR: Denies chest pain, palpitations, or edema. RESPIRATORY: Denies cough or dyspnea. GASTROINTESTINAL: Denies abdominal pain, nausea, vomiting, or diarrhea. GENITOURINARY: Denies dysuria or hematuria. SKIN: Denies rash, wound, or itching. MUSCULOSKELETAL: Denies back pain, joint pain, or myalgia. Positive for left knee pain and swelling NEUROLOGIC: Denies headache, numbness, or weakness. PSYCHIATRIC: Denies anxiety or depression. All other systems reviewed are negative, except as documented in HPI. 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 Johnson at [facility] H/O: hysterectomy 1989, Dr. Diego Kaminski (in [place]). Family History Family History Mother Cerebrovascular accident Patient's mother is , Onset Age: 68 Hypertension Father Carcinoma of colon Patient's father is Hypertension Family history of congenital heart disease Sibling Hypertension Cerebrovascular accident Unknown Family history of cancer Intestinal cancer Other Depression Diabetes mellitus Family history of arthritis Family history of stroke Social History Social History Smoking status: Former smoker Tobacco type: cigarettes Second hand tobacco smoke exposure: No Smoking end date: 09/04/1960 Alcohol intake: current Drinks per week: 1 Substance use: never Substance use type: does not use Lack of Transportation: No Lack of Food: Never True Current Housing: I Have Housing Concerned About Future Housing: No Difficulty Paying Gas/Electric Bills: No Difficulty Paying for Meds: No Currently Unemployed: No Education: Decline to Answer Difficulty w/ Childcare or Family Care: No Occupation/Education: retired Additional occupation/education comments: 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 There is no relevant family history pertinent to the patient complaint. Exam Narrative: GENERAL: This is a well-nourished, well-developed adult, in no apparent distress. They are non ill-appearing, nontoxic appearing. HEAD: normocephalic, atraumatic. EYES: Sclera clear/white. Vision is grossly intact. Conjunctiva normal. Extraocular movement intact. EARS: External ears normal Hearing grossly intact. NOSE: External nose normal THROAT: Mucous membranes moist NECK: Neck supple CARDIOVASCULAR: Regular rate and rhythm RESPIRATORY: Respiratory rate normal, respiratory effort nonlabored, no respiratory distress NEURO: awake, alert, and oriented to person, place and time. There were no obvious focal neurologic abnormalities. EXTREMITIES: Left knee: No obvious deformity, injury, bruising, redness. Mild swelling. There is pain through full range of motion. No bony tenderness. Capillary refill less than 3 seconds. Normal sensation. Neurovascular status intact distal injury. Valgus or varus laxity BACK: Nontender without deformity. Course Course Level of Care: Express Care Visit Vital Signs Vital signs: Vital Signs Temperature 98.2 F 09/02/25 12:40 Pulse Rate 70 09/02/25 12:40 Respiratory Rate 16 09/02/25 12:40 Blood Pressure 142/64 H 09/02/25 12:40 Pulse Oximetry 100 09/02/25 12:40 Temperature 98.2 F 09/02/25 12:40 Pulse Rate 70 09/02/25 12:40 Respiratory Rate 16 09/02/25 12:40 Blood Pressure 142/64 H 09/02/25 12:40 Pulse Oximetry 100 09/02/25 12:40 MDM MDM Narrative Medical decision making narrative: X-ray left knee is negative for any fractures or acute findings, arthritic changes noted. Patient given Chavo wrap for compression. Discussed rice therapy and supportive care. Recommend follow-up with ortho. My MDM Differential Diagnosis Differential Diagnosis: Knee sprain, knee contusion, knee fracture, knee arthritis Imaging Data Radiologist's impression: Findings/impression: 1. Small joint effusion. 2. No fracture or dislocation. 3. Moderate medial compartment joint space narrowing. 4. Chondrocalcinosis. 5. Mild marginal osteophytes. Critical Care Time Critical Care Time Critical Care Time: No Discharge Plan Discharge Clinical Impression: Arthritis of knee, left Patient Disposition: Home Condition: Stable Instructions: Knee Pain (ED), Arthritis (ED) Additional Instructions: The x-ray of your left knee is negative for fractures or acute findings. Does appear you have arthritis of her left knee in a small joint effusion. Rest and elevate the leg; bear weight as tolerated Apply ice 15-20 minute intervals several times a day Keep it wrapped with CHAVO or use a the brace You may take ibuprofen 600 mg to 800 mg every 6-8 hours. Do not exceed more than 800 mg of ibuprofen per dose. Do not exceed more than 3200 mg ibuprofen in a day. You may take up to 1000 mg Tylenol every 6-8 hours. Do not exceed 1000 mg per dose, do exceed more than 4000 mg of Tylenol in a day. Do not take ibuprofen if you are taking Celebrex. Follow up with your ortho in 3-5 days. Patient Language: Swedish Prescriptions: No Action fexofenadine [Kassi Allergy] 60 mg tablet 60 mg PO Q12H biotin 1 mg capsule 1 mg PO DAILY Adult 50 Plus Probiotic 4 billion cell capsule 4,000 mmu cells PO DAILY Rx Instructions: administer with a meal hydroxychloroquine [Plaquenil] 200 mg tablet 200 mg PO DAILY guaifenesin [Mucinex] PO cholecalciferol (vitamin D3) PO fluticasone propionate 50 mcg/actuation spray,suspension See Rx Instructions .ROUTE .COMPLEX Qty: 48 1RF Dose Instruction: SPRAY 2 SPRAYS IN EACH NOSTRIL ONCE DAILY Rx Instructions: SPRAY 2 SPRAYS IN EACH NOSTRIL ONCE DAILY celecoxib [Celebrex] 100 mg capsule 100 mg PO BID Qty: 180 1RF montelukast [Singulair] 10 mg tablet 10 mg PO DAILY Qty: 90 1RF amlodipine 5 mg tablet 5 mg PO DAILY Qty: 90 1RF levothyroxine 112 mcg tablet See Rx Instructions .ROUTE .COMPLEX Qty: 90 1RF Dose Instruction: Take 1 Tablet (112 mcg) by mouth daily. Rx Instructions: Take 1 Tablet (112 mcg) by mouth daily. famotidine 20 mg tablet 20 mg PO DAILY Qty: 90 1RF pravastatin 10 mg tablet 10 mg PO DAILY Qty: 90 1RF hydrochlorothiazide 25 mg tablet See Rx Instructions .ROUTE .COMPLEX Qty: 90 1RF Dose Instruction: TAKE ONE TABLET BY MOUTH ONCE DAILY Rx Instructions: TAKE ONE TABLET BY MOUTH ONCE DAILY clonazepam 0.5 mg tablet 0.5 mg PO DAILY Qty: 90 1RF Follow-up/Referrals: Andrea Carrillo MD [Physician, Orthopedics] - 3 Days Omega Parker DO [Primary Care Provider, Internal Medicine] Time of Disposition: 13:23
== END 2025-09-02 13:29 | disposition home or self-care (01) ==
PROVIDERS: PCP Internal Medicine
DX: M25.462 Effusion, left knee (principal); M17.12 Unilateral primary osteoarthritis, left knee; L43.9 Lichen planus, unspecified; K58.9 Irritable bowel syndrome, unspecified; H81.09 Meniere's disease, unspecified ear; Z87.891 Personal history of nicotine dependence
CPT/HCPCS: 73564; 99213; G0463